=== PATIENT | male | born 1980 | race Caucasian/White ===

== ENCOUNTER 2020-06-21 10:25 | Emergency (ER) | payer MEDICARE, MEDICAID, SELFPAY ==
[2020-06-21 10:48] VITALS: BP 132/91; PULSE 101; RESP 18; TEMP 36.9; O2SAT 100
--- NOTE | 2020-06-21 10:50 | ED.URI ---
HPI - URI/Sore Throat General Chief Complaint: Anxiety Stated Complaint: anxiety/chest pain Time Seen by Provider: 06/21/20 10:50 Source: patient Mode of arrival: ambulatory Limitations: no limitations History of Present Illness HPI Narrative: Garcia Sandy is a 40 yo male with CP, anxiety, depression, and HTN , who comes to [facility] with concerns about Covid. It is very anxious even though he has not been exposed about having the possibility of having Covid, he wears a mask, stays home with his mother. Patient stated he is states that he has funny feelings in his chest. He had the same situation back in February where he went to get a chest x-ray to verify that he did not have Covid but has not had a serological test Related Data Home Medications Medication Instructions Recorded Confirmed clonazepam 0.5 mg PO BID 06/21/20 06/21/20 fluvoxamine 100 mg PO HS 06/21/20 06/21/20 losartan 25 mg PO DAILY 06/21/20 06/21/20 paroxetine HCl [Paxil CR] 50 mg PO QAM 06/21/20 06/21/20 Allergies Allergy/AdvReac Type Severity Reaction Status Date / Time No Known Allergies Allergy Verified 06/21/20 10:54 Review of Systems Review of Systems: Narrative: CONSTITUTIONAL: Denies fever, chills, sweats. EYES: Denies visual changes, redness, discharge. ENT: Denies rhinorrhea, congestion, sore throat, otalgia. CARDIOVASCULAR: Denies chest pain, palpitations, edema. RESPIRATORY: Denies dyspnea, wheezing, cough. Feels funny in chest- wants covid evaluation GASTROINTESTINAL: Denies abdominal pain, nausea, vomiting, diarrhea. GENITOURINARY: Denies dysuria, hematuria, abnormal discharge SKIN: Denies rash or itching. NEUROLOGIC: Denies numbness, or focal weakness. PSYCHIATRIC: Denies anxiety or depression. ON LICENSE OF [facility] Past Medical History Medical History Anxiety Cerebral palsy Depression Hypertension Family History Family History Other Hypertension Social History Social History (Updated 06/21/20 @ 11:08 by Annie Morse CNP) Living arrangements: with family Occupation/Education: other Comments At time of signature, I agree with nursing past medical, surgical, social and family history. There is no relevant family history pertinent to the presenting complaint. Exam Narrative: Exam Narrative: GENERAL: This is a well-nourished, well-developed patient, in mild distress. Very anxious, interfering in quality of life HEAD: normocephalic, atraumatic. EYES: PERRL. Vision is grossly intact. EARS: External ears normal, . Hearing grossly intact. NOSE: External nose normal without nasal discharge, nares without redness, no rhinorrhea. THROAT: Mucous membranes moist, NECK: Neck supple, CARDIOVASCULAR: Regular rate and rhythm without murmurs, gallops, or rubs. RESPIRATORY: Clear to auscultation. Breath sounds equal bilaterally. No wheezes, rales, or rhonchi. GASTROINTESTINAL: Abdomen soft, non-tender, SKIN: warm, intact with no suspicious lesions or rash, good texture and turgor. NEURO: awake, alert, and oriented to person, place and time. There were no obvious focal neurologic abnormalities. Steady gait EXTREMITIES: Multiple contractures of limitations of extremities with CP BACK: Nontender without deformity Course Course Emergency Course: Discussed with patient the pros and cons of serological testing for Covid; will retest Vital Signs Vital signs: Vital Signs Temperature 98.4 F 06/21/20 10:48 Pulse Rate 101 H 06/21/20 10:48 Respiratory Rate 18 06/21/20 10:48 Blood Pressure 132/91 H 06/21/20 10:48 Pulse Oximetry 100 06/21/20 10:48 Temperature 98.4 F 06/21/20 10:48 Pulse Rate 101 H 06/21/20 10:48 Respiratory Rate 18 06/21/20 10:48 Blood Pressure 132/91 H 06/21/20 10:48 Pulse Oximetry 100 06/21/20 10:48 MDM - URI/Sore Throat Differential Diagnosis Differential diagnosis: Likely uppe
== END 2020-06-21 11:30 | disposition home or self-care (01) ==
PROVIDERS: Emergency Provider Nurse Practitioner; PCP Internal Medicine
DX: F41.9 Anxiety disorder, unspecified (principal); R53.81 Other malaise; Z20.828 Contact with and (suspected) exposure to other viral communicable diseases; G80.9 Cerebral palsy, unspecified; F32.9 Major depressive disorder, single episode, unspecified; I10 Essential (primary) hypertension
CPT/HCPCS: 99201; G0463

== ENCOUNTER 2020-06-21 13:06 | Outpatient (NON) | payer MEDICARE, MEDICAID, SELFPAY ==
[2020-06-22 19:52] LABS: SARS-CoV-2 RNA PCR Negative
== END 2020-06-21 13:07 ==
PROVIDERS: Visit Provider Nurse Practitioner
DX: Z20.828 Contact with and (suspected) exposure to other viral communicable diseases (principal); R53.81 Other malaise
CPT/HCPCS: 87635; C9803; U0003

== ENCOUNTER 2020-10-17 14:36 | Outpatient (CLI) | payer MEDICARE, MEDICAID, SELFPAY ==
--- NOTE | ~2020-10-17 | XR_ITS ---
XR abdomen/kub 1V 10/17/2020 15:09 Indication: Bladder stone. Right-sided abdominal pain. Procedure: KUB Comparison: Comparison to multiple prior studies sequentially, with oldest reviewed study dated 02/18. Findings: There are extensive surgical changes in the spine and hips. There is a right-sided catheter of the abdomen unchanged in position. There are right renal stone. Bowel gas pattern nonobstructive. Moderate colonic fecal loading. Bladder appears distended. Impression: 1: Right nephrolithiasis. Reviewed, dictated and finalized at location A. LLE DUPLICATING MACHINE OPERATOR Impression: 1: Right nephrolithiasis.
== END 2020-10-17 14:37 | disposition home or self-care (01) ==
PROVIDERS: PCP Internal Medicine; Visit Provider Urology
DX: N20.0 Calculus of kidney (principal)
CPT/HCPCS: 74018

== ENCOUNTER 2020-10-22 15:11 | Outpatient (CLI) | payer MEDICARE, MEDICAID, SELFPAY ==
--- NOTE | ~2020-10-22 | XR_ITS ---
XR abdomen/kub 1V DATE: 10/22/2020 15:31 INDICATION: Bladder stone TECHNIQUE: 2 supine AP views of abdomen and pelvis COMPARISON: 10/17/2020 KUB FINDINGS: Bilateral spinal rods and postoperative changes of both hips are again noted. Diffuse osteopenia. Probable ventriculoperitoneal shunt catheter tubing overlying the medial right abdomen. There is a prominent amount of fecal material in the colon. There are some nondilated gas containing small bowel segments overlying the mid abdomen, which may be due to enteritis or mild adynamic ileus. No bowel obstruction is evident. Calcifications overlie the renal silhouettes; nephrolithiasis is not excluded. IMPRESSION: Prominent amount of fecal material in the colon and nondilated gas containing mid abdomen small bowel segments, which may be due to mild adynamic ileus or enteritis. Reviewed, dictated and finalized at [facility]. Reviewed, dictated and finalized at location A.
== END 2020-10-22 15:12 | disposition home or self-care (01) ==
PROVIDERS: PCP Internal Medicine; Visit Provider Urology
DX: N21.0 Calculus in bladder (principal)
CPT/HCPCS: 74018

== ENCOUNTER 2021-03-05 14:57 | Emergency (ER) | payer MEDICARE, MEDICAID, SELFPAY ==
[2021-03-05 15:13] VITALS: BP 147/92; PULSE 92; RESP 20; TEMP 36.8; O2SAT 100
--- NOTE | 2021-03-05 15:19 | ED.URI ---
HPI - URI/Sore Throat General Chief Complaint: Upper Respiratory Infection Stated Complaint: Sinus, Source: patient and RN notes reviewed Limitations: no limitations History of Present Illness HPI Narrative: The vaccinated patient, who has a history of cerebral palsy in a wheelchair, presents with sinus congestion. Mother indicates her son is a non-smoker/nondrinker with pet dogs at home. He has intermittent history of eyes watering, nasal congestion and for which he is concerned he might have Covid. He has had a previous chest x-ray and covid test last month. No fever, cough, vomiting/diarrhea, loss of taste/smell, CP, wheezing, SS OB, med noncompliance [ except he did not take his blood pressure pills today]. The eye itching and sinus congestion is min responsive to Benadryl Related Data Home Medications Medication Instructions Recorded Confirmed clonazepam 0.5 mg PO BID 06/21/20 06/21/20 fluvoxamine 100 mg PO HS 06/21/20 06/21/20 losartan 25 mg PO DAILY 06/21/20 06/21/20 paroxetine HCl [Paxil CR] 50 mg PO QAM 06/21/20 06/21/20 cephalexin 03/05/21 Allergies Allergy/AdvReac Type Severity Reaction Status Date / Time clarithromycin AdvReac Severe PARANOIA/PANIC Verified 10/23/20 13:51 AND ANXIETY ATTACKS Review of Systems Review of Systems: Narrative: General/Constitutional: No weight loss,fever Eyes: N0: Redness, REPORTS watery discharge Ears/Nose/Throat: No: Epistaxis,ear discharge Respiratory: Denies: Hemoptysis Gastrointestinal: No Vomiting, Bleeding-rectal Skin: No Lumps, eruption Neurologic: No Focal Weakness,Sz Hematologic: Denies: Petechiae/Purpura Psychiatric: No: Suicida ideationl All Other Systems: Reviewed and Negative PMFSH Past Medical History Medical History (Updated 03/05/21 @ 18:46 by Drarin Eagle MD) Anxiety Anxiety Cerebral palsy Cerebral palsy Chronic back pain Depression Depression GERD (gastroesophageal reflux disease) HTN (hypertension) Hydrocephalus Hyperlipidemia Hypertension Kidney stones Lordosis Scoliosis Seizures UTI (urinary tract infection) Surgical History Surgical History (System 10/23/20 @ 13:51 by Adelaida Rhodes) History of brain shunt History of hip surgery Bilateral osteotomies History of spinal fusion With jeff placement Family History Family History (System 10/23/20 @ 13:51 by Adelaida Rhodes) Other Hypertension Social History Social History (System 10/23/20 @ 13:51 by Adelaida Rhodes) Smoking status: Never smoker Comments At time of signature, agree with nursing past medical, surgical, social and family history. There is no relevant family history pertinent to the presenting complaint Exam Narrative: Exam Narrative: General Appearance: In wheelchair, chronically unwell EYE: PERRLA, Conjunctiva sl injected Ears: Auditory canal normal, TM normal Nose: Rhinorrhea, Mucousal erythema Mouth/Throat: MM moist, Uvula midline, Pharyngeal erythema Neck: Supple, No adenopathy Respiratory: No respiratory distress, gliotic, with decreased BS charla at bases Cardiovascular: RRR, Musculoskeletal: Decreased ROM and strength with spasticity Skin: Warm, Dry Neurological: Awake and alert Psychiatric: Normal mood, Normal affect Course Vital Signs Vital signs: Vital Signs Temperature 98.3 F 03/05/21 15:13 Pulse Rate 92 03/05/21 15:13 Respiratory Rate 20 03/05/21 15:13 Blood Pressure 147/92 H 03/05/21 15:13 Pulse Oximetry 100 03/05/21 15:13 Temperature 98.3 F 03/05/21 15:13 Pulse Rate 92 03/05/21 15:13 Respiratory Rate 20 03/05/21 15:13 Blood Pressure 147/92 H 03/05/21 15:13 Pulse Oximetry 100 03/05/21 15:13 MDM - URI/Sore Throat Lab Data Labs: Lab Results 03/05/21 Range/Units 15:25 POC SARS CoV-2 Ag Negative (Negative) Discharge Plan Discharge Clinical Impression: Mood disorder Allergic conjunctivitis Qualifiers: Later
[2021-03-06 18:40] LABS: SARS-CoV-2 RNA PCR Negative
== END 2021-03-05 16:05 | disposition home or self-care (01) ==
PROVIDERS: Emergency Provider Emergency Medicine; PCP Internal Medicine
DX: F39 Unspecified mood [affective] disorder (principal); H10.13 Acute atopic conjunctivitis, bilateral; Z20.822 Contact with and (suspected) exposure to COVID-19; F41.9 Anxiety disorder, unspecified; G80.9 Cerebral palsy, unspecified; F32.9 Major depressive disorder, single episode, unspecified; K21.9 Gastro-esophageal reflux disease without esophagitis; I10 Essential (primary) hypertension; G91.9 Hydrocephalus, unspecified; E78.5 Hyperlipidemia, unspecified; M41.9 Scoliosis, unspecified; G40.909 Epilepsy, unspecified, not intractable, without status epilepticus
CPT/HCPCS: 87426; 99213; C9803; G0463; U0003; U0005

== ENCOUNTER 2021-05-07 12:11 | Emergency (ER) | payer MEDICARE, MEDICAID, SELFPAY ==
[2021-05-07 12:20] VITALS: BP 130/98; PULSE 90; RESP 18; TEMP 36.5; O2SAT 100
--- NOTE | 2021-05-07 13:15 | ED.GENADULT ---
HPI - General Adult General Chief complaint: Upper Respiratory Infection Stated complaint: sore throat Source: patient and family (Mother) Mode of arrival: ambulatory Limitations: no limitations History of Present Illness HPI narrative: Patient is a 1-year-old male with history significant for cerebral palsy that presents to the [facility] via POV for evaluation of a sore throat that began 1 to 2 days ago. Additionally, he reports bilateral ear pain, sinus drainage and rhinorrhea. He reports his throat pain is constant and raw in nature. Ibuprofen improves sore throat and ear pain. Nothing worsens symptoms. Denies known exposure to sick contacts. He is fully vaccinated against Covid. Of note, patient is concerned he may have Covid and is requesting Covid testing before returning to [facility]. Related Data Home Medications Medication Instructions Recorded Confirmed losartan 25 mg PO DAILY 06/21/20 05/07/21 clonazepam 1 mg PO BID 05/07/21 05/07/21 paroxetine HCl [Paxil CR] mg PO 05/07/21 paroxetine HCl [Paxil CR] mg PO 05/07/21 Allergies Allergy/AdvReac Type Severity Reaction Status Date / Time clarithromycin AdvReac Severe PARANOIA/PANIC Verified 10/23/20 13:51 AND ANXIETY ATTACKS Review of Systems Review of Systems: Head: Denies headache, sinus pain, sinus pressure. EYES: Denies visual changes, redness, or discharge. ENT: Denies congestion, ear drainage, hearing problems, tinnitus, vertigo, drooling, difficulty swallowing, or sneezing. CARDIOVASCULAR: Denies chest pain, palpitations, or edema. RESPIRATORY: Denies cough or dyspnea. GASTROINTESTINAL: Denies abdominal pain, nausea, vomiting, or diarrhea. SKIN: Denies rash or skin color changes. MUSCULOSKELETAL: Denies back pain, joint pain, or myalgia. NEUROLOGIC: Denies headache, numbness, or weakness. PSYCHIATRIC: Denies anxiety or depression. [facility] Past Medical History Medical History Anxiety Anxiety Cerebral palsy Cerebral palsy Chronic back pain Depression Depression GERD (gastroesophageal reflux disease) HTN (hypertension) Hydrocephalus Hyperlipidemia Hypertension Kidney stones Lordosis Scoliosis Seizures UTI (urinary tract infection) Surgical History Surgical History History of brain shunt History of hip surgery Bilateral osteotomies History of spinal fusion With jeff placement Family History Family History Other Hypertension Social History Social History Smoking status: Never smoker Comments I have reviewed and agree with the patient's past medical, surgical, social, and family hx as documented by the RN. There is no relevant family history pertinent to the presenting complaint. Exam Narrative: GENERAL: Well-appearing, well-nourished, and in no acute distress. HEAD: Normocephalic, atraumatic. No sinus tenderness or facial swelling appreciated. EYES: PERRLA and EOMI. No evidence of erythema, swelling, or drainage. ENT: Bilateral external ears and ear canals normal. Bilateral TMs are normal.No TM perforation. Nares clear, no rhinorrhea or epistaxis. Bilateral turbinates without erythema/ swelling. Mucous membranes moist and pink. Uvula is midline without erythema and swelling. No evidence of petechial rash, cobblestoning, lesions, ulcers, erythema, swelling, exudates, peritonsillar abscess, tenting, or drooling. Breath odor and voice normal. NECK: Supple. No Lymphadenopathy or nuchal rigidity appreciated. CHEST: Bilateral lung mcelroy are clear to auscultation. No respiratory distress. No evidence of cough or pleuritic cp upon examination. HEART: Regular rate and rhythm. No murmur, gallop, or rub heard. EXTREMITIES: Normal range of motion. No edema. SKIN: Warm, dry, no ra
[2021-05-09 16:55] LABS: SARS-CoV-2 RNA PCR Negative
== END 2021-05-07 13:25 | disposition home or self-care (01) ==
PROVIDERS: Emergency Provider Nurse Practitioner Family; PCP Internal Medicine
DX: J06.9 Acute upper respiratory infection, unspecified (principal); Z20.822 Contact with and (suspected) exposure to COVID-19; G80.9 Cerebral palsy, unspecified; K21.9 Gastro-esophageal reflux disease without esophagitis; I10 Essential (primary) hypertension; E78.5 Hyperlipidemia, unspecified; M41.9 Scoliosis, unspecified; F41.9 Anxiety disorder, unspecified; F32.9 Major depressive disorder, single episode, unspecified; G91.9 Hydrocephalus, unspecified
CPT/HCPCS: 99211; C9803; G0463; U0003; U0005

== ENCOUNTER 2021-08-05 17:32 | Emergency (ER) | payer MEDICARE, MEDICAID, SELFPAY ==
--- NOTE | ~2021-08-05 | CT_ITS ---
EXAMINATION: CT abdomen pelvis wo con DATE: 08/05/2021 20:15 INDICATION: Lower abdominal pain. History of bladder stones. TECHNIQUE: Computed tomography (CT) of the abdomen and pelvis was performed without intravenous contr ast. Automated exposure control and iterative reconstruction technique were employed. Exam dose: 433 .60 mGy-cm total exam DLP. COMPARISON: 10/22/2020 KUB 02/18/2019 CT abdomen pelvis FINDINGS: Thoracolumbar lumbar spinal rods extending into the iliac bones are again noted, creating c onsiderable streak artifact, limiting the examination. There is anterior fusion from the lower thorac ic region through lumbosacral region. Bilateral hip hardware is again noted. There is mild bilateral gynecomastia. There is mild atelectasis in the lower lung zones. Heart size is within normal limits. There is no pe ricardial or pleural effusion. The liver, gallbladder, bile ducts, pancreas, pancreatic duct, spleen, and adrenal glands are unremar kable. There is an exophytic 1.9 cm cyst of the lower pole of the right kidney. There is an approximately 3. 3 x 6 mm nonobstructing mid right renal calculus. There is a 2 x 4 mm nonobstructing mid left renal c alculus. There is prostate enlargement. There is moderate diffuse thickening of the urinary bladder wall. Normal appendix. No bowel obstruction, bowel wall thickening, pneumatosis or intraperitoneal free air is evident. There is atherosclerotic calcification but no aneurysm of the abdominal aorta. No intraperitoneal or retroperitoneal or pelvic mass lesion or adenopathy or ascites is noted. IMPRESSION: No bladder stones are detected Prostate enlargement There is a nonobstructing calculus of each kidney 1.9 cm right lower pole exophytic renal probable cyst Normal appendix Status post posterior spinal surgical fusion. There is anterior fusion of the lower thoracic spine th rough the L5-S1 region. Reviewed, dictated and finalized at [facility]. Reviewed, dictated and finalized at location A. MASSAGE THERAPIST IMPRESSION: No bladder stones are detected Prostate enlargement There is a nonobstructing calculus of each kidney 1.9 cm right lower pole exophytic renal probable cyst Normal appendix Status post posterior spinal surgical fusion. There is anterior fusion of the l ower thoracic spine through the L5-S1 region.
[2021-08-05 17:44] VITALS: BP 146/78; PULSE 84; RESP 18; TEMP 36.6; O2SAT 100
--- NOTE | 2021-08-05 19:07 | ED.GENADULT ---
HPI - General Adult General Chief complaint: Urogenital-Male Stated complaint: Lower Abd Pain Hx Bladder Stones Time Seen by Provider: 08/05/21 19:03 Source: RN notes reviewed History of Present Illness HPI narrative: Patient presents emergency department from home for abdominal pain. Patient states he been having intermittent lower abdominal pain over the past week describes the pain as a tingling feeling that well resolved states that he had a history of bladder stones approximately 3 years ago and feels similar to that at that time he had been seen by Dr. Hernandez for urology with removal of the bladder stones patient does have a history of cerebral palsy and is catheterized at home by a caregiver 3 times a day he denies any fevers or chills nausea vomiting or any other symptoms Related Data Home Medications Medication Instructions Recorded Confirmed losartan 25 mg PO DAILY 06/21/20 05/07/21 clonazepam 1 mg PO BID 05/07/21 05/07/21 paroxetine HCl [Paxil CR] mg PO 05/07/21 paroxetine HCl [Paxil CR] mg PO 05/07/21 Allergies Allergy/AdvReac Type Severity Reaction Status Date / Time clarithromycin AdvReac Severe PARANOIA/PANIC Verified 08/05/21 17:51 AND ANXIETY ATTACKS Review of Systems Review of Systems: Gen.: Denies fevers or chills ENT: Denies congestion Respiratory: Denies shortness of breath or cough CV: Denies chest pain or palpitations GI: Reports lower abdominal pain nausea, emesis or diarrhea denies burning, urgency, frequency or hematuria reports self-catheterization Musculoskeletal: Denies back pain or muscle pain Neuro: Denies numbness, tingling, weakness or focal weakness Skin: Denies rash Except as documented, all other systems reviewed and negative [facility] Past Medical History Medical History Anxiety Anxiety Cerebral palsy Cerebral palsy Chronic back pain Depression Depression GERD (gastroesophageal reflux disease) HTN (hypertension) Hydrocephalus Hyperlipidemia Hypertension Kidney stones Lordosis Scoliosis Seizures UTI (urinary tract infection) Surgical History Surgical History History of brain shunt History of hip surgery Bilateral osteotomies History of spinal fusion With jeff placement Family History Family History Other Hypertension Social History Social History Smoking status: Never smoker Exam Narrative: APPEARANCE: No acute distress, nontoxic, resting in bed EYES: EOMI HEENT: Normocephalic, atraumatic, OMM RESPIRATORY: No respiratory distress Clear to auscultation bilaterally with no rhonchi wheezing or rales. CARDIOVASCULAR: Regular rate and rhythm without murmurs rubs or gallops. ABDOMINAL: Soft, nontender, nondistended, no rebound or guarding MUSCULOSKELETAl: No clubbing, cyanosis or edema. NEURO: Awake and alert. Following commands, speech normal SKIN:: Warm, dry. No rashes lesions or abrasions PSYCHIATRIC: Normal affect/mood, Course Course Emergency Course: Discussed with Dr. Hernandez presentation work-up. Recommends patient start on Omnicef at discharge with follow-up as an outpatient Discussed with patient results of workup and diagnosis. Discussed need for follow-up with primary care, proper use of medication, and reasons to return to the emergency department. Patient understands and agrees to current treatment plan Vital Signs Vital signs: Vital Signs Temperature 97.9 F 08/05/21 17:44 Pulse Rate 84 08/05/21 17:44 Respiratory Rate 18 08/05/21 17:44 Blood Pressure 146/78 H 08/05/21 17:44 Pulse Oximetry 100 08/05/21 17:44 Temperature 97.9 F 08/05/21 17:44 Pulse Rate 84 08/05/21 17:44 Respiratory Rate 18 08/05/21 17:44 Blood Pressure 146/78 H 08/05/21 17:44 Pulse Oximetry 100 12
[2021-08-05 19:47] LABS: Basophils Percent Auto 0.4 % (0.2-1.2); Eosinophils Percent Auto 0.5 % (0-4.4); Hematocrit 45.8 % (42.0-52.0); Immature Granulocyte Absolute 0.02 K/mm3 (0.00-0.031); Immature Granulocyte Percent A 0.3 % (0-0.5); Lymphocytes Absolute Auto 1.51 K/mm3 (0.9-3.2); Lymphocytes Percent Auto 19.8 % (18.3-44.2); Mean Corpuscular HGB Conc 32.8 g/dl (32-36); Mean Corpuscular Hemoglobin 31.3 pg (26-34); Mean Corpuscular Volume 95.4 fl (80-100); Mean Platelet Volume 9.8 fl (7.4-10.4); Monocytes Absolute Auto 0.4 K/mm3 (0.1-0.6); Monocytes Percent Auto 5.5 % (2.6-8.5); Neutrophils Absolute Auto 5.6 K/mm3 (1.3-6.7); Neutrophils Percent Auto 73.5 % (45.5-73.1); Platelet Count Result 214 k/mm3 (150-375); Red Cell Distribution Width 12.4 % (11.5-14.5); White Blood Count 7.6 K/mm3 (4.5-10.0)
[2021-08-05 19:58] LABS: Alanine Aminotransferase 26 U/L (4-50); Albumin Level 4.8 g/dL (3.5-5.1); Alkaline Phosphatase 83 U/L (38-126); Anion Gap 8 mmol/L (8-16); Aspartate Amino Transferase 26 U/L (17-59); Bilirubin,Total 0.4 mg/dL (0.2-1.3); Blood Urea Nitrogen 12 mg/dL (9-20); Calcium 9.4 mg/dL (8.4-10.2); Carbon Dioxide 33 mmol/L (22-30); Chloride 97 mmol/L (98-107); Estimated CRCL calculation 114 ml/min; Estimated Glomerular Filt Rate > 60; Glucose 96 mg/dL (65-110); Potassium 4.4 mmol/L (3.4-5.0); Sodium 138 mmol/L (137-145)
[2021-08-05 20:20] LABS: Add Urine Microscopic? YES; Appearance Urine Cloudy (Clear); Bilirubin Urine Negative (Negative); Color Urine Yellow (Yellow); Glucose Urine UA Negative (Negative); Ketones Urine Negative (Negative); Leukocyte Esterase Ur 3+ LEU/UL (Negative); Nitrate Urine Negative (Negative); Protein Urine Negative (Negative); Specific Grav Ur 1.014 (1.001-1.035); Squamous Epithelial Cell Urine Rare /hpf (Few); Urobilinogen Urine Negative mg/dL (<2.0); WBC Urine 31-50 /hpf
[2021-08-05 20:21] LABS: Blood Urine Negative (Negative)
[2021-08-05] MEDS: CEFDINIR 300 MG CAPSULE PO (21:53)
== END 2021-08-05 22:04 | disposition home or self-care (01) ==
PROVIDERS: Emergency Provider Emergency Medicine; PCP Internal Medicine
DX: N39.0 Urinary tract infection, site not specified (principal); I10 Essential (primary) hypertension; E78.5 Hyperlipidemia, unspecified; G80.9 Cerebral palsy, unspecified; F41.8 Other specified anxiety disorders; K21.9 Gastro-esophageal reflux disease without esophagitis; G91.9 Hydrocephalus, unspecified
CPT/HCPCS: 36415; 74176; 80053; 81001; 85025; 87077; 87086; 87088; 87186; 99284; A9270

== ENCOUNTER 2021-12-31 13:47 | Outpatient (CLI) | payer MEDICARE, MEDICAID, SELFPAY ==
--- NOTE | ~2021-12-31 | XR_ITS ---
EXAM: XR abdomen/kub 1V DATE: 12/31/2021 14:11 HISTORY: BLADDER STONE . COMPARISON: CT abdomen pelvis 08/05/2021. FINDINGS: Clear lung bases. Normal bowel gas pattern. No organomegaly. Stable renal calculi. Partial ly visualized MEDIA SERVICES COORDINATOR shunt tubing, extensive thoracolumbar fusion hardware. Bilateral femoral hardware. IMPRESSION: Bilateral nephrolithiasis. No radiographic evidence of urinary bladder stone. Reviewed, dictated and finalized at location K. IMPRESSION: Bilateral nephrolithiasis. No radiographic evidence of urinary blad siobhan stone.
== END 2021-12-31 13:48 | disposition home or self-care (01) ==
PROVIDERS: PCP Internal Medicine; Visit Provider Urology
DX: N21.0 Calculus in bladder (principal); N20.0 Calculus of kidney
CPT/HCPCS: 74018

== ENCOUNTER 2022-07-09 15:56 | Outpatient (CLI) | payer MEDICARE, MEDICAID, SELFPAY ==
[2022-07-09 17:11] LABS: Influenza A QL RT-PCR Negative (Negative); Influenza B QL RT-PCR Negative (Negative)
== END 2022-07-09 15:57 | disposition home or self-care (01) ==
PROVIDERS: PCP Internal Medicine; Visit Provider Internal Medicine
DX: R51.9 Headache, unspecified (principal); J32.9 Chronic sinusitis, unspecified
CPT/HCPCS: 87502

== ENCOUNTER 2023-05-08 19:57 | Inpatient (IN) | payer MEDICARE, MEDICAID, SELFPAY ==
--- NOTE | ~2023-05-08 | XR_ITS ---
EXAMINATION: XR chest 1V portable Exam Date/Time: 05/10/2023 13:50 CDT HISTORY: dyspnea Comparison: 08/06/2019. RESULT: Lines, tubes, and devices: Partially visualized spine fusion hardware. Partially visualized right ne ck catheter tubing. Lungs and pleura: Patchy bibasilar opacities, worse in the left lung base. Cardiomediastinal silhouette: Stable. Other: No acute osseous or upper abdominal finding. IMPRESSION: Bibasilar atelectasis/consolidation. Reviewed, dictated and finalized at location K.
--- NOTE | ~2023-05-08 | XR_ITS ---
EXAMINATION: XR retrograde pyelo w/stent RT INDICATION: Right ureteral stone, stent placement TECHNIQUE: Six intraoperative fluoroscopic images are submitted for review. Total fluoroscopic time w as 31.5 seconds. COMPARISON: CT from yesterday FINDINGS: Fluoroscopic images demonstrate retrograde opacification of the right ureter. The stone sergio cribed on the comparison CT appears to have migrated in a retrograde fashion into the lower pole kim x of the kidney. A right internal ureteral stent is placed with its tip in the renal pelvis and a coi led portion in the urinary bladder. Retrograde opacification of the ureter demonstrates multiple smal l areas of stricturing. IMPRESSION: 1. Right internal ureteral stent in expected position. Please refer to procedure note for full detail s. Reviewed, dictated and finalized at location F. IMPRESSION: 1. Right internal ureteral stent in expected position. Please refer to procedur e note for full details.
--- NOTE | ~2023-05-08 | CT_ITS ---
EXAMINATION: CT abdomen pelvis wo con DATE: 05/08/2023 23:33 INDICATION: Right flank pain TECHNIQUE: Computed tomography (CT) of the abdomen and pelvis was performed without intravenous contr ast. The dose-length product (DLP) was 547.74 mGy-cm. Automated exposure control and iterative recons truction technique were employed. COMPARISON: 08/05/2021 FINDINGS: Minimal dependent atelectasis is present in the lung bases. The heart size is normal. The l iver, spleen, pancreas, gallbladder, and adrenal glands are normal. There is a 6 mm stone of the prox imal right ureter causing moderate hydroureteronephrosis. There is also an 8 mm stone in the urinary bladder. There is mild wall thickening of the urinary bladder. There are two nonobstructing stones of the right kidney which measure up to 3 mm. There is a chronic exophytic cyst of the right kidney. Th e left kidney is unremarkable. No pathologically enlarged abdominal or pelvic lymph nodes are identif ied. A large volume of colonic stool is present. There are changes of thoracolumbar to the sacral fu marco a. There are bilateral blade plate and screw fixation of the hips. There is discontinuous catheter tubing coursing in the subcutaneous tissues of the right anterior chest and upper abdomen and ending in the right mid abdomen. IMPRESSION: 1. 6 mm stone of the proximal right ureter causing moderate hydroureteronephrosis. 2. Right nephrolithiasis and bladder stone. 3. Wall thickening of the urinary bladder which could reflect neurogenic bladder. Reviewed, dictated and finalized at location F. IMPRESSION: 1. 6 mm stone of the proximal right ureter causing moderate hydroureteronephros is. 2. Right nephrolithiasis and bladder stone. 3. Wall thickening of the urinary bladder which could reflect neurogenic bladde manjinder
--- NOTE | ~2023-05-08 | XR_ITS ---
EXAM: XR abdomen/kub 1V DATE: 05/11/2023 15:20 HISTORY: surgical planning . COMPARISON: None available. FINDINGS: 6 mm calcification projecting over the right renal shadow. Right ureteral stent, in good p osition. 5 mm calcification projecting over the urinary bladder and the pelvic ring. Partially visual ized uncomplicated appearing spinal fusion hardware. The rectum appears to be distended by formed sto ol but is incompletely included in the [id number]. Multiple loops of mildly dilated small bowel th roughout the abdomen. No organomegaly. IMPRESSION: Small bowel ileus versus obstruction. Possible fecal impaction. Reviewed, dictated and finalized at location K.
[2023-05-08 20:13] VITALS: BP 140/80; PULSE 120; RESP 16; TEMP 37.6; O2SAT 95
[2023-05-08 22:17] VITALS: BP 132/85; PULSE 125; RESP 22; TEMP 37.9; O2SAT 98
[2023-05-08 22:37] VITALS: BP 131/82; PULSE 143; RESP 20; TEMP 39.6; O2SAT 97
[2023-05-08 23:04] VITALS: O2SAT 94
[2023-05-08] MEDS: ACETAMINOPHEN 500 MG TABLET 1000 MG PO (23:13)
--- NOTE | 2023-05-08 23:19 | PC.NURSE ---
Patient taken to CT via personal w/c with family.
--- NOTE | 2023-05-08 23:23 | ED.GENADULT ---
HPI - General Adult General Chief complaint: Urogenital-Male Stated complaint: fever, pain right flank Time Seen by Provider: 05/08/23 22:45 History of Present Illness HPI narrative: This is a 43-year-old male with past history of hypertension, cerebral palsy and UTIs, who presents the emergency department complaining of fevers and right flank pain. The patient's flank pain began 2 days ago. He rates it 4/10 at rest, increasing to 8/10 with palpation. The patient and his mother note his fevers began earlier this evening. The patient's mother also states she regularly straight caths him and has noted his urine has appeared cloudy. Related Data Home Medications Medication Instructions Recorded Confirmed losartan 25 mg tablet 25 mg PO DAILY 06/21/20 05/09/23 clonazepam 1 mg tablet 1 mg PO DAILY 05/07/21 05/09/23 paroxetine HCl 12.5 mg 12.5 mg PO DAILY 05/07/21 05/09/23 tablet,extended release 24 hr (Paxil CR) paroxetine HCl 37.5 mg 37.5 mg PO DAILY 05/07/21 05/09/23 tablet,extended release 24 hr (Paxil CR) clonidine HCl 0.1 mg tablet 0.1 mg PO DAILY PRN Anxiety 05/08/23 05/09/23 fluvoxamine 100 mg tablet 50 mg PO BID 05/08/23 05/09/23 lamotrigine 100 mg tablet 100 mg PO DAILY 05/08/23 05/09/23 Allergies Allergy/AdvReac Type Severity Reaction Status Date / Time clarithromycin AdvReac Severe PARANOIA/PANIC Verified 05/09/23 02:51 AND ANXIETY ATTACKS Review of Systems Review of Systems: CONSTITUTIONAL: Fevers denies chills, or sweats. CARDIOVASCULAR: Denies chest pain, palpitations, or edema. RESPIRATORY: Denies cough or dyspnea. GASTROINTESTINAL: Right flank pain denies abdominal pain, nausea, vomiting, or diarrhea. GENITOURINARY: Denies dysuria or hematuria. SKIN: Denies rash or itching. MUSCULOSKELETAL: Denies back pain, joint pain, or myalgia. NEUROLOGIC: Denies headache, numbness, dizziness, or weakness. PSYCHIATRIC: Denies anxiety or depression. [facility] Past Medical History Medical History Anxiety Anxiety Cerebral palsy Cerebral palsy Chronic back pain Depression Depression GERD (gastroesophageal reflux disease) HTN (hypertension) Hydrocephalus Hyperlipidemia Hypertension Kidney stones Lordosis Scoliosis Seizures UTI (urinary tract infection) Surgical History Surgical History History of brain shunt History of hip surgery Bilateral osteotomies History of spinal fusion With jeff placement Family History Family History Other Hypertension Social History Social History Smoking status: Never smoker Alcohol intake: never Substance use: never Lack of Transportation: No Lack of Food: Never True Current Housing: I Have Housing Concerned About Future Housing: No Difficulty Paying Gas/Electric Bills: No Difficulty Paying for Meds: No Currently Unemployed: No Education: High School Diploma/GED Difficulty w/ Childcare or Family Care: No Living arrangements: with family Occupation/Education: other Spiritual care concerns: No Exam Narrative: GENERAL: Underdeveloped with atrophy of the extremities, well-nourished, and in no acute distress. HEAD: Normocephalic, atraumatic. EYES: PERRLA and EOMI. ENT: Nares clear, no rhinorrhea or epistaxis. Mucous membranes moist. Oropharynx without tonsillar hypertrophy exudate or other lesions. CHEST: Clear to auscultation. No respiratory distress. No wheezes rales or rhonchi HEART: Regular rate and rhythm. No murmur heard. Normal peripheral pulses. ABDOMEN: Soft, nontender, nondistended, normal active bowel sounds. Mild right CVA tenderness to palpation : Normal external male genitalia, circumcised, no noted erythema or induration EXTREMITIES: Normal range of motion. No
[2023-05-08 23:40] VITALS: TEMP 37.1
[2023-05-08 23:55] LABS: Basophils Percent Auto 0.2 % (0.2-1.2); Hemoglobin 13.7 g/dL (14.0-18.0); Immature Granulocyte Percent A 0.8 % (0-0.5); Lymphocytes Absolute Auto 0.18 K/mm3 (0.9-3.2); Lymphocytes Percent Auto 1.4 % (18.3-44.2); Mean Corpuscular HGB Conc 33.4 g/dl (32-36); Mean Corpuscular Hemoglobin 31.4 pg (26-34); Mean Corpuscular Volume 93.8 fl (80-100); Mean Platelet Volume 9.8 fl (7.4-10.4); Monocytes Absolute Auto 0.6 K/mm3 (0.1-0.6); Monocytes Percent Auto 4.9 % (2.6-8.5); Neutrophils Absolute Auto 11.7 K/mm3 (1.3-6.7); Neutrophils Percent Auto 92.7 % (45.5-73.1); Platelet Count Result 155 k/mm3 (150-375); Red Blood Count 4.37 M/mm3 (4.6-6.20); Red Cell Distribution Width 12.6 % (11.5-14.5); White Blood Count 12.7 K/mm3 (4.5-10.0)
[2023-05-08 23:59] LABS: Appearance Urine Cloudy (Clear); Bacteria Urine 4+ /hpf; Bilirubin Urine Negative (Negative); Blood Urine 2+ (Negative); Color Urine Yellow (Yellow); Glucose Urine UA Negative (Negative); Ketones Urine 2+ mg/dL (Negative); Leukocyte Esterase Ur 1+ LEU/UL (Negative); Nitrate Urine Positive (Negative); Protein Urine 2+ mg/dL (Negative); Specific Grav Ur 1.025 (1.001-1.035); Squamous Epithelial Cell Urine None seen /hpf (Few); WBC Urine >100 /hpf; pH Urine 6.5 (5.0-9.0)
[2023-05-09] VITALS (21 sets, daily range): BP systolic 73–129; BP diastolic 40–74; PULSE 89–112; RESP 16–20; TEMP 36.4–39.1; O2SAT 94–100; BMI 22.1
[2023-05-09] MEDS: SODIUM CHLORIDE 0.9% IV 2,000 ML 999 ML IV CONT (00:01)
[2023-05-09] MEDS: MORPHINE SULFATE (*CRX) 2 MG/ML INJ IV PUSH (00:02)
[2023-05-09 00:06] LABS: Alanine Aminotransferase 23 U/L (6-50); Albumin Level 4.2 g/dL (3.5-5.1); Alkaline Phosphatase 86 U/L (38-126); Anion Gap 6 mmol/L (8-16); Aspartate Amino Transferase 30 U/L (17-59); Bilirubin,Total 0.9 mg/dL (0.2-1.3); Blood Urea Nitrogen 15 mg/dL (9-20); Calcium 8.5 mg/dL (8.4-10.2); Carbon Dioxide 28 mmol/L (22-30); Chloride 101 mmol/L (98-107); Estimated CRCL calculation 65 ml/min; Estimated Glomerular Filt Rate > 60; Glucose 112 mg/dL (65-110); Potassium 3.5 mmol/L (3.4-5.0); Sodium 135 mmol/L (137-145)
[2023-05-09 00:20] LABS: Add Urine Microscopic? YES
[2023-05-09 00:32] LABS: Influenza A QL RT-PCR Negative (Negative); Influenza B QL RT-PCR Negative (Negative); SARS-CoV-2 RNA PCR Negative (Negative)
[2023-05-09] MEDS: cefTRIAXone 2 GM/NS 100 ML 2 GM/100 ML BAG IVPB (00:37)
--- NOTE | 2023-05-09 02:18 | ADMGEN ---
This patient, Garcia Sandy Jr., was admitted to Medical Room 346-01. Patient/family oriented to hospital policies and general routines including ID bracelet, bed and alarms, visiting hours, pain management, procedures, bathroom and other care routines, personal items, smoking policy, room service/diet, and visiting hours. Information on how to activate the Rapid Response Team has been discussed. Patient/Family are encouraged to report perceived risks to care and to ask questions if they do not understand what they are told or what they should do.
[2023-05-09] MEDS: SODIUM CHLORIDE 0.9% IV 1,000 ML 125 ML IV CONT ×3 (02:34→17:18)
[2023-05-09] MEDS: ACETAMINOPHEN 325 MG TABLET 650 MG PO (03:50)
--- NOTE | 2023-05-09 05:13 | PM.IMHP ---
H&P: HPI History of Present Illness Date/Time: 05/09/23 05:13 Chief Complaint: Patient brought into the ER for evaluation by her mother with intermittent fevers and right flank pain for 2 days Narrative: He is a very unfortunate young juvencio with Cerebral Palsy,, hypertension and recurrent UTIs who was brought to the ER for evaluation by her mother with complaints of intermittent fever and right flank pain for the last couple of days. Fever got higher last evening and the patient was brought to the ER for evaluation. He has loss of bladder control and her mother regularly self catheterizes him. She noted that his urine appears cloudy. Workup was done in the ER which showed UTI and right UPJ calculus. Patient is being admitted, given IV hydration, started on IV antibiotics and kept NPO for evaluation by Urology and possible JJ stent placement in am. Review of Systems Review of Systems: he denies any chest pain, palpitations, loss of consciousness, abdominal pain All systems reviewed & are unremarkable except as noted in HPI and below PMFSH Past Medical History Medical History (Updated 05/09/23 @ 05:20 by Kush Nicholas MD) Anxiety Anxiety Cerebral palsy Cerebral palsy Chronic back pain Depression Depression GERD (gastroesophageal reflux disease) HTN (hypertension) Hydrocephalus Hyperlipidemia Hypertension Kidney stones Lordosis Scoliosis Seizures UTI (urinary tract infection) Surgical History Surgical History History of brain shunt History of hip surgery Bilateral osteotomies History of spinal fusion With jeff placement Family History Family History Other Hypertension Social History Social History Smoking status: Never smoker Alcohol intake: never Substance use: never Lack of Transportation: No Lack of Food: Never True Current Housing: I Have Housing Concerned About Future Housing: No Difficulty Paying Gas/Electric Bills: No Difficulty Paying for Meds: No Currently Unemployed: No Education: High School Diploma/GED Difficulty w/ Childcare or Family Care: No Living arrangements: with family Occupation/Education: other Spiritual care concerns: No Meds Home Medications and Allergies Home Medications Medication Instructions Recorded Confirmed Type losartan 25 mg tablet 25 mg PO DAILY 06/21/20 05/09/23 History clonazepam 1 mg tablet 1 mg PO DAILY 05/07/21 05/09/23 History paroxetine HCl 12.5 mg 12.5 mg PO DAILY 05/07/21 05/09/23 History tablet,extended release 24 hr (Paxil CR) paroxetine HCl 37.5 mg 37.5 mg PO DAILY 05/07/21 05/09/23 History tablet,extended release 24 hr (Paxil CR) clonidine HCl 0.1 mg tablet 0.1 mg PO DAILY PRN Anxiety 05/08/23 05/09/23 History fluvoxamine 100 mg tablet 50 mg PO BID 05/08/23 05/09/23 History lamotrigine 100 mg tablet 100 mg PO DAILY 05/08/23 05/09/23 History Allergies Allergy/AdvReac Type Severity Reaction Status Date / Time clarithromycin AdvReac Severe PARANOIA/PANIC Verified 05/09/23 02:51 AND ANXIETY ATTACKS Vital Signs Vital Signs - 24 hr 05/08/23 20:13 05/08/23 22:17 05/08/23 22:37 Temperature 37.6 C H 37.9 C H 39.6 C H Pulse Rate 120 H 125 H 143 H Respiratory Rate 16 22 H 20 Blood Pressure 140/80 132/85 131/82 Pulse Oximetry 95 98 97 Oxygen Delivery Room Air 05/09/23 00:38 05/08/23 23:40 05/08/23 23:04 Temperature 37.1 C 37.1 C Pulse Rate 112 H Respiratory Rate 18 Blood Pressure 118/74 Pulse Oximetry 98 94 Oxygen Delivery 05/09/23 00:09 05/09/23 00:15 05/09/23 00:16 Temperature Pulse Rate Respiratory Rate Blood Pressure 118/74 Pulse Oximetry 94 94 94 Oxygen Delivery 05/09/23 00:34 05/09/23 01:01 05/09/23 01:23 Temperature Pulse Rate 107 H Respiratory Rate 18 Blo
--- NOTE | 2023-05-09 07:35 | PC.NURSE ---
Patient to sx at 0730. Parents at bedside
--- NOTE | 2023-05-09 07:42 | WPDANESEPPF ---
Anes - Initial Pre Proc Eval Procedure: Operation Date: 05/09/23 08:30 Proposed Procedures p Cysto, RPG, Stone Ext, Stent Placement(Right) - Darrin Fleming MD Date/Time: 05/09/23 07:42 Surgeon: Harpal Gallagher DO Pre Op Diagnosis: UTI, ureterolithiasis Patient Data Age: 43 Gender: M Height: 1.52 m Weight: 51.5 kg Last Vital Signs Temp 39.1 C H 05/09/23 04:00 Pulse 107 H 05/09/23 04:00 Resp 16 05/09/23 04:00 BP 110/50 L 05/09/23 04:00 Pulse Ox 95 05/09/23 04:00 O2 Del Method Room Air 05/08/23 22:37 Allergies Allergy/AdvReac Type Severity Reaction Status Date / Time clarithromycin AdvReac Severe PARANOIA/PANIC Verified 05/09/23 02:51 AND ANXIETY ATTACKS Home Medications Medication Instructions Recorded Confirmed Type losartan 25 mg tablet 25 mg PO DAILY 06/21/20 05/09/23 History clonazepam 1 mg tablet 1 mg PO DAILY 05/07/21 05/09/23 History paroxetine HCl 12.5 mg 12.5 mg PO DAILY 05/07/21 05/09/23 History tablet,extended release 24 hr (Paxil CR) paroxetine HCl 37.5 mg 37.5 mg PO DAILY 05/07/21 05/09/23 History tablet,extended release 24 hr (Paxil CR) clonidine HCl 0.1 mg tablet 0.1 mg PO DAILY PRN Anxiety 05/08/23 05/09/23 History fluvoxamine 100 mg tablet 50 mg PO BID 05/08/23 05/09/23 History lamotrigine 100 mg tablet 100 mg PO DAILY 05/08/23 05/09/23 History Laboratory Tests 05/08/23 23:46 WBC 12.7 H K/mm3 (4.5-10.0) RBC 4.37 L M/mm3 (4.6-6.20) Hgb 13.7 L g/dL (14.0-18.0) Hct 41.0 L % (42.0-52.0) MCV 93.8 fl (80-100) MCH 31.4 pg (26-34) MCHC 33.4 g/dl (32-36) RDW 12.6 % (11.5-14.5) Plt Count 155 k/mm3 (150-375) MPV 9.8 fl (7.4-10.4) Immature Gran % (Auto) 0.8 H % (0-0.5) Neut % (Auto) 92.7 H % (45.5-73.1) Lymph % (Auto) 1.4 L % (18.3-44.2) [place] % (Auto) 4.9 % (2.6-8.5) Eos % (Auto) 0.0 % (0-4.4) Baso % (Auto) 0.2 % (0.2-1.2) Lymph # (Auto) 0.18 L K/mm3 (0.9-3.2) [place] # (Auto) 0.6 K/mm3 (0.1-0.6) Eos # (Auto) 0.0 K/mm3 (0-0.3) Baso # (Auto) 0.0 K/mm3 (0.0-0.1) Abs Immat Gran (auto) 0.10 H K/mm3 (0.00-0.031) Absolute Neuts (auto) 11.7 H K/mm3 (1.3-6.7) Absolute Nucleated RBC 0.0 K/mm3 (0.0-0.012) Nucleated RBC % 0.0 % (0.0-0.2) Sodium 135 L mmol/L (137-145) Potassium 3.5 mmol/L (3.4-5.0) Chloride 101 mmol/L (98-107) Carbon Dioxide 28 mmol/L (22-30) Anion Gap 6 L mmol/L (8-16) BUN 15 mg/dL (9-20) Creatinine 0.90 mg/dL (0.7-1.3) Estim Creat Clear Calc 65 ml/min Estimated GFR > 60 (59 - ) Glucose 112 H mg/dL (65-110) Calcium 8.5 mg/dL (8.4-10.2) Total Bilirubin 0.9 mg/dL (0.2-1.3) AST 30 U/L (17-59) ALT 23 U/L (6-50) Alkaline Phosphatase 86 U/L (38-126) Total Protein 8.0 g/dL (6.3-8.2) Albumin 4.2 g/dL (3.5-5.1) Urine Color Yellow (Yellow) Urine Appearance Cloudy H (Clear) Urine pH 6.5 (5.0-9.0) Ur Specific [place] 1.025 (1.001-1.035) Urine Protein 2+ H mg/dL (Negative) Urine Glucose (UA) Negative mg/dL (Negative) Urine Ketones 2+ H mg/dL (Negative) Ur Blood (Man) 2+ H (Negative) Urine Nitrate Positive H (Negative) Urine Bilirubin Negative (Negative) Urine Urobilinogen 1.0 mg/dL (<2.0) Leukocyte Esterase Rfl 1+ H GABE/UL (Negative) Urine RBC 6-10 H /hpf (0-2) Urine WBC >100 H /hpf Ur Squamous Epith Cells None seen /hpf (Few) Urine Bacteria 4+ H /hpf Urine Casts 3-5 Influenza A (RT-PCR) Negative (Negative) Influenza B (RT-PCR) Negative (Negative) SARS-CoV-2 RNA (RT-PCR) Negative (Negative) Patient hx anesthesia problems: other (slow to awaken) Family hx anesthesia problems: none Results Review: All pre-operative results and documents have been reviewe
--- NOTE | 2023-05-09 07:51 | WPDURCON ---
Assessment and Plan Assessment and plan (1) Urinary tract infection: Qualifiers: Hematuria presence: with hematuria Urinary tract infection type: site unspecified Qualified Code(s): N39.0 - Urinary tract infection, site not specified; R31.9 - Hematuria, unspecified Code(s): N39.0 - Urinary tract infection, site not specified Status: Acute (2) Right ureteral calculus: Code(s): N20.1 - Calculus of ureter Status: Acute (3) Kidney stone on right side: Code(s): N20.0 - Calculus of kidney Status: Acute Plan right ureteral stone UTI Sepsis Plan for right stent and IV antibiotics. Will need definitive treatment following. Urology Consult Note HPI Date Seen: 05/09/23 Requesting Physician: Harpal Gallagher DO Primary Care Provider: eBbeto NapierMD Consult Narrative Narrative: Garcia Sandy Jr. is a 43 year old male with CP and requires CIC. Has fever and found to have 6mm right proximal stone with obstruction. Fever over night. Normal renal fuction. Review of Systems Review of Systems: alert and awake, no complaints of pain Eyes: Comments: normal ENT: Comments: normal Respiratory: Comments: no SOB PMFSH Past Medical History Medical History Anxiety Anxiety Cerebral palsy Cerebral palsy Chronic back pain Depression Depression GERD (gastroesophageal reflux disease) HTN (hypertension) Hydrocephalus Hyperlipidemia Hypertension Kidney stones Lordosis Scoliosis Seizures UTI (urinary tract infection) Surgical History Surgical History History of brain shunt History of hip surgery Bilateral osteotomies History of spinal fusion With jeff placement Family History Family History Other Hypertension Social History Social History Smoking status: Never smoker Alcohol intake: never Substance use: never Lack of Transportation: No Lack of Food: Never True Current Housing: I Have Housing Concerned About Future Housing: No Difficulty Paying Gas/Electric Bills: No Difficulty Paying for Meds: No Currently Unemployed: No Education: High School Diploma/GED Difficulty w/ Childcare or Family Care: No Living arrangements: with family Occupation/Education: other Spiritual care concerns: No Meds Home Medications and Allergies Home Medications Medication Instructions Recorded Confirmed Type losartan 25 mg tablet 25 mg PO DAILY 06/21/20 05/09/23 History clonazepam 1 mg tablet 1 mg PO DAILY 05/07/21 05/09/23 History paroxetine HCl 12.5 mg 12.5 mg PO DAILY 05/07/21 05/09/23 History tablet,extended release 24 hr (Paxil CR) paroxetine HCl 37.5 mg 37.5 mg PO DAILY 05/07/21 05/09/23 History tablet,extended release 24 hr (Paxil CR) clonidine HCl 0.1 mg tablet 0.1 mg PO DAILY PRN Anxiety 05/08/23 05/09/23 History fluvoxamine 100 mg tablet 50 mg PO BID 05/08/23 05/09/23 History lamotrigine 100 mg tablet 100 mg PO DAILY 05/08/23 05/09/23 History Allergies Allergy/AdvReac Type Severity Reaction Status Date / Time clarithromycin AdvReac Severe PARANOIA/PANIC Verified 05/09/23 02:51 AND ANXIETY ATTACKS Vital Signs Vital Signs - 24 hr 05/08/23 20:13 05/08/23 22:17 05/08/23 22:37 Temperature 37.6 C H 37.9 C H 39.6 C H Pulse Rate 120 H 125 H 143 H Respiratory Rate 16 22 H 20 Blood Pressure 140/80 132/85 131/82 Pulse Oximetry 95 98 97 Oxygen Delivery Room Air 05/09/23 00:38 05/08/23 23:40 05/08/23 23:04 Temperature 37.1 C 37.1 C Pulse Rate 112 H Respiratory Rate 18 Blood Pressure 118/74 Pulse Oximetry 98 94 Oxygen Delivery 05/09/23 00:09 05/09/23 00:15 05/09/23 00:16 Temperature Pulse
[2023-05-09] MEDS: LACTATED RINGERS 1,000 ML 30 ML IV CONT (08:02)
[2023-05-09] MEDS: ceFAZolin 1 GM/NS 50 ML 1 GM/50 ML BAG IVPB (08:02)
[2023-05-09] MEDS: LIDOCAINE HCL 2% GEL UROJET 10 ML PKG MUCOUS MEM (08:24)
--- NOTE | 2023-05-09 08:36 | W.PM.PROC2 ---
Procedure Note - Detailed Date of Procedure 05/09/23 Pre-op Diagnosis UTI, ureterolithiasis right proximal Post-op Diagnosis Same Procedure Performed cystoscopy and right retrograde pyelogram and right stent Surgeon Darrin Fleming MD Anesthesia MAC Indications fever and UTI and right proximal stone Findings bladder stone and right proximal stone Description of Procedure Patient was carefully placed in lithotomy as he has contracted lower extremities. His lower abdomen, phallus and scrotum was dressed and draped in sterile fashion. Urojet was place in urethra. Cystoscopy was completed and the bladder was inspected. An approximate 1cm stone and debris was visualized. The bladder was trabeculated. The right UO was intubbated with an open ended ureteral catheter and a retrograde study demonstrated an obstructing stone in the proximal ureter. A 6 bermudian variable length stent was placed. A good curl in the renal pelvis and in the bladder. A 16 bermudian roberto catheter was placed. Implants 6 bermudian stent Estimated Blood Loss 0 Urine Output 75 Complications No immediate complications Condition Stable
[2023-05-09] MEDS: lamoTRIgine 100 MG TABLET PO (12:23)
[2023-05-09] MEDS: clonazePAM (*CRX) 0.5 MG TABLET 1 MG PO (12:23)
--- NOTE | 2023-05-09 12:26 | PM.IMPN ---
Progress Note: A&P Assessment and Plan (1) Right ureteral calculus: Code(s): N20.1 - Calculus of ureter Status: Acute (2) Urinary tract infection: Qualifiers: Hematuria presence: with hematuria Urinary tract infection type: site unspecified Qualified Code(s): N39.0 - Urinary tract infection, site not specified; R31.9 - Hematuria, unspecified Code(s): N39.0 - Urinary tract infection, site not specified Status: Acute (3) Cerebral palsy: Code(s): G80.9 - Cerebral palsy, unspecified Status: Acute Plan # right urolithiasis # infected kidney stone # sepsis secondary to UTI associated with kidney stone -patient with fever and kidney stone likely infected stone -POD#0 cystoscopy with right ureter stent placed by Dr. Espan[place] on 05/09/2023 -IV fluids: Patient received several fluid boluses, continue maintenance fluids normal saline 125 cc/hour -hypertension from infection, triggered sepsis, treated with IV fluids and antibiotics. sepsis present on admission -antibiotic: Rocephin -pain control: P.r.n. morphine, [place], Tylenol -will monitor leukocytosis, repeat labs in a.m. # chronic conditions -cerebral palsy: Continue home Lamictal -anxiety: Continue home Paxil, fluvoxamine, klonopin. Family may bring home non-formulary meds. holding clonidine prn -essential hypertension: held Losartan Diet: Regular DVT prophylaxis: SCDs Code status: Full code Disposition: Likely home in 2-3 days Subjective Date/time seen: 05/09/23 12:26 Interval history: Patient seen and examined postoperative. Patient was found to have a right ureterolithiasis and urologist Dr. Fleming placed a stent in the right ureter. Patient postop has been hypotensive, had received anesthesia and morphine for pain control. We have given IV fluid boluses will continue with maintenance fluids to 125 cc normal saline. Will continue antibiotics for the infected stone. Family updated bedside. Patient denies fever, chills, nausea vomiting diarrhea. Review of Systems Review of Systems: 10 point ROS complete, negative other than what is specified in HPI. Limited due to his baseline mental status Exam Narrative: - GENERAL: Pleasant male thin, cerebral palsy. Well-nourished. - EYES: EOMI. Anicteric. - HENT: Moist mucous membranes. - LUNGS: Clear to auscultation bilaterally, no wheezing, rhonchi, or rales. - CARDIOVASCULAR: Regular rate and rhythm. - ABDOMEN: Soft, non-tender and non-distended. No palpable masses. - EXTREMITIES: No edema. Peripheral pulses 2+. - NEUROLOGIC: No focal neurological deficits. - PSYCHIATRIC: Awake, Alert. Appropriate mood and affect. - SKIN: No rashes or lesions. Warm. Objective Data Vital Signs Vital Signs: Vital Signs - 24 hr 05/08/23 20:13 05/08/23 22:17 05/08/23 22:37 Temperature 37.6 C H 37.9 C H 39.6 C H Pulse Rate 120 H 125 H 143 H Respiratory Rate 16 22 H 20 Blood Pressure 140/80 132/85 131/82 Pulse Oximetry 95 98 97 Oxygen Delivery Room Air Oxygen Flow Rate 05/09/23 00:38 05/08/23 23:40 05/08/23 23:04 Temperature 37.1 C 37.1 C Pulse Rate 112 H Respiratory Rate 18 Blood Pressure 118/74 Pulse Oximetry 98 94 Oxygen Delivery Oxygen Flow Rate 05/09/23 00:09 05/09/23 00:15 05/09/23 00:16 Temperature Pulse Rate Respiratory Rate Blood Pressure 118/74 Pulse Oximetry 94 94 94 Oxygen Delivery Oxygen Flow Rate 05/09/23 00:34 05/09/23 01:01 05/09/23 01:23 Temperature Pulse Rate 107 H Respiratory Rate 18 Blood Pressure 129/65 Pulse Oximetry 94 95 Oxygen Delivery Oxygen Flow Rate 05/09/23 01:55 05/09/23 03:40 05/09/23 04:00 Temperature 39.1 C H 39.1 C H Pulse Rate 103 H 107 H Respiratory Rate 17 16 Blood Pressure 109/69 110/50 L Pulse Oximetry 96 95 Oxygen Delivery Oxygen Flow Rate 05/09/23 08:30 05/09/23 08:45 05/09/23 09:00 Temperature 36.9 C Pulse Rate 95 95
--- NOTE | 2023-05-09 12:45 | PHAR ---
HOME MEDS VERIFIED = [facility] RX [id number] FLUVOXAMINE 50 MG , [id number] PAXIL CR 12.5 MG, RX [id number] PAXIL CR 37.5 MG
--- NOTE | 2023-05-09 12:51 | PC.NURSE ---
Losartan was not administered do NPO status this AM . I spoke with Dr Gallagher at bedside after patient returned from pacu and he gave verbal order to hold Losartan given patients BP.
[2023-05-10] VITALS: BP 118/66; PULSE 90; RESP 18; TEMP 36.3; O2SAT 94
[2023-05-10] MEDS: SODIUM CHLORIDE 0.9% IV 1,000 ML 125 ML IV CONT ×3 (01:27→16:45)
[2023-05-10 04:38] VITALS: BP 114/57; PULSE 84; RESP 16; TEMP 37; O2SAT 94
[2023-05-10 05:57] LABS: Basophils Absolute Auto 0.1 K/mm3 (0.0-0.1); Basophils Percent Auto 0.4 % (0.2-1.2); Eosinophils Absolute Auto 0.1 K/mm3 (0-0.3); Eosinophils Percent Auto 0.6 % (0-4.4); Hemoglobin 10.4 g/dL (14.0-18.0); Immature Granulocyte Absolute 0.16 K/mm3 (0.00-0.031); Immature Platelet Fraction Pct 4.6 % (0.9-11.2); Lymphocytes Absolute Auto 0.98 K/mm3 (0.9-3.2); Lymphocytes Percent Auto 6.2 % (18.3-44.2); Mean Corpuscular HGB Conc 32.5 g/dl (32-36); Mean Corpuscular Volume 95.5 fl (80-100); Monocytes Absolute Auto 0.8 K/mm3 (0.1-0.6); Monocytes Percent Auto 4.8 % (2.6-8.5); Neutrophils Absolute Auto 13.8 K/mm3 (1.3-6.7); Platelet Count Result 98 k/mm3 (150-375); Red Blood Count 3.35 M/mm3 (4.6-6.20); Red Cell Distribution Width 13.1 % (11.5-14.5); White Blood Count 15.9 K/mm3 (4.5-10.0)
[2023-05-10 06:08] LABS: Anion Gap 4 mmol/L (8-16); Blood Urea Nitrogen 12 mg/dL (9-20); Carbon Dioxide 23 mmol/L (22-30); Chloride 111 mmol/L (98-107); Estimated CRCL calculation 94 ml/min; Estimated Glomerular Filt Rate > 60; Glucose 87 mg/dL (65-110); Magnesium 1.9 mg/dL (1.6-2.3); Phosphorus 1.7 mg/dL (2.5-4.5); Potassium 3.3 mmol/L (3.4-5.0); Sodium 138 mmol/L (137-145)
[2023-05-10] MEDS: lamoTRIgine 100 MG TABLET PO (08:14)
[2023-05-10] MEDS: clonazePAM (*CRX) 0.5 MG TABLET 1 MG PO ×2 (08:14→19:11)
--- NOTE | 2023-05-10 09:26 | WPDANESPN ---
Anes - Prog Note Post-Op Date/Time: 05/10/23 09:26 Cardiovascular status: normal Respiratory status: normal Airway patency: baseline Mental status: baseline Post-Op hydration status: normal Vital Signs: Last Vital Signs Temp 37.0 C 05/10/23 04:38 Pulse 84 05/10/23 04:38 Resp 16 05/10/23 04:38 BP 114/57 L 05/10/23 04:38 Pulse Ox 94 05/10/23 04:38 O2 Del Method Room Air 05/10/23 08:00 O2 Flow Rate 8 05/09/23 08:45 Pain Score (VAS): 08/19 I/O: Intake & Output 05/09/23 05/10/23 05/10/23 23:59 07:59 15:59 Intake Total 1240 1150 1000 Output Total 250 750 Balance 765 177 2945 Laboratory Tests 05/10/23 05:39 05/10/23 05:39 05/10/23 05:39 WBC 15.9 H RBC 3.35 L Hgb 10.4 L D Hct 32.0 L MCV 95.5 MCH 31.0 MCHC 32.5 RDW 13.1 Plt Count 98 L MPV 11.0 H Immature Gran % (Auto) 1.0 H Neut % (Auto) 87.0 H Lymph % (Auto) 6.2 L [place] % (Auto) 4.8 Eos % (Auto) 0.6 Baso % (Auto) 0.4 Lymph # (Auto) 0.98 [place] # (Auto) 0.8 H Eos # (Auto) 0.1 Baso # (Auto) 0.1 Abs Immat Gran (auto) 0.16 H Absolute Neuts (auto) 13.8 H Absolute Nucleated RBC 0.0 Nucleated RBC % 0.0 % Immature Plt Fraction 4.6 Sodium 138 Potassium 3.3 L Chloride 111 H Carbon Dioxide 23 Anion Gap 4 L BUN 12 Creatinine 0.60 L Estim Creat Clear Calc 94 Estimated GFR > 60 Glucose 87 Calcium 7.0 L Phosphorus 1.7 L Magnesium 1.9 Microbiology 05/08/23 23:46 Urine Catheterized Urine Culture - Preliminary Post-procedural complaints: none Patient Feedback: Patient satisfied with anesthetic care. Other Findings: patient's gaurdian relayed information about patient's condition. She reports he had no complications related to anesthesia. She feels he is ready to go home.
[2023-05-10] MEDS: cefTRIAXone 2 GM/NS 100 ML 2 GM/100 ML BAG IVPB (09:53)
--- NOTE | 2023-05-10 11:17 | PM.IMPN ---
Progress Note: A&P Assessment and Plan (1) Right ureteral calculus: Code(s): N20.1 - Calculus of ureter Status: Acute (2) Urinary tract infection: Qualifiers: Hematuria presence: with hematuria Urinary tract infection type: site unspecified Qualified Code(s): N39.0 - Urinary tract infection, site not specified; R31.9 - Hematuria, unspecified Code(s): N39.0 - Urinary tract infection, site not specified Status: Acute (3) Cerebral palsy: Code(s): G80.9 - Cerebral palsy, unspecified Status: Acute (4) Anxiety: Code(s): F41.9 - Anxiety disorder, unspecified Status: Acute Plan # right urolithiasis # infected kidney stone # sepsis secondary to UTI associated with kidney stone -patient with fever and kidney stone likely infected stone -POD#1 cystoscopy with right ureter stent placed by Dr. Espana on 05/09/2023 -IV fluids:? Patient received several fluid boluses, continue maintenance fluids normal saline 125 cc/hour -we will continue IV fluids, patient is complaining some dyspnea, his lungs are clear to auscultation, will check chest x-ray -hypotension from infection, triggered sepsis, treated with IV fluids and antibiotics. sepsis present on admission. BP improved -antibiotic: increased Rocephin dose to 2g for worsening WBC -pain control: P.r.n. morphine, [place], Tylenol -will monitor leukocytosis, repeat labs in a.m. # chronic conditions -cerebral palsy:? Continue home Lamictal -anxiety: Continue home Paxil, fluvoxamine, klonopin.? Family may bring home non-formulary meds. holding clonidine prn -essential hypertension: continue to hold Losartan Diet:??Regular DVT prophylaxis:??SCDs Code status:?Full code Disposition:?home in 2-3 days Subjective Date/time seen: 05/10/23 11:17 Interval history: Patient seen and examined. He appears to be doing well. He does complain of worsening dyspnea. His lungs are clear, will obtain chest x-ray. Worsening leukocytosis, I discussed with Pharmacy to increased dose of Rocephin to 2 g daily. Patient has a history of Klebsiella in urine which was only resistant to ampicillin, current urine culture still pending. Patient denies fever, chills, nausea vomiting, diarrhea. Review of Systems Review of Systems: 10 point ROS complete, negative other than what is specified in HPI. Exam Narrative: - GENERAL:? Pleasant male thin, cerebral palsy, he is restless and tachypneic. - EYES: EOMI. Anicteric. - HENT: Moist mucous membranes. - LUNGS: Clear to auscultation bilaterally, no wheezing, rhonchi, or rales. Tachypneic - CARDIOVASCULAR: Regular rate and rhythm. - ABDOMEN: Soft, non-tender and non-distended. No palpable masses. - EXTREMITIES: No edema. Peripheral pulses 2+. Grossly deformed extremity due to CP - NEUROLOGIC: No focal neurological deficits. - PSYCHIATRIC: Awake, Alert. Anxious mood and affect. - SKIN: No rashes or lesions. Warm. Objective Data Vital Signs Vital Signs: Vital Signs - 24 hr 05/09/23 14:20 05/09/23 20:00 05/09/23 20:31 Temperature 36.7 C 36.4 C Pulse Rate 89 100 Respiratory Rate 16 20 Blood Pressure 99/62 L 110/52 L Pulse Oximetry 94 95 Oxygen Delivery 05/09/23 20:00 05/10/23 00:00 05/10/23 04:38 Temperature 36.3 C L 37.0 C Pulse Rate 90 84 Respiratory Rate 18 16 Blood Pressure 118/66 114/57 L Pulse Oximetry 94 94 Oxygen Delivery Room Air 05/10/23 08:00 Temperature Pulse Rate Respiratory Rate Blood Pressure Pulse Oximetry Oxygen Delivery Room Air Intake/Output Intake/Output: Intake & Output 05/07/23 05/08/23 05/09/23 05/10/23 23:59 23:59 23:59 23:59 Intake Total 4840 2150 Output Total 75 805 750 Balance -75 4035 1400 Meds/Results Medications: Active Medications Generic Name Dose Route Start Last Admin Trade Name Freq PRN Reason Stop Dose Admin Acetaminophen 650 mg 05/09/23 05:28 Acetaminophen 325 Mg Tablet PO Q4H ME
[2023-05-10 12:00] VITALS: BP 111/72; PULSE 88; RESP 20; TEMP 36.7; O2SAT 99
--- NOTE | 2023-05-10 12:41 | WPDUROPN2 ---
Progress Note: A&P Assessment and Plan (1) Right ureteral calculus: Code(s): N20.1 - Calculus of ureter Status: Acute Assessment and Plan: has stent--ESWL likely as outpatient and injfection treated (2) Urinary tract infection: Qualifiers: Hematuria presence: with hematuria Urinary tract infection type: site unspecified Qualified Code(s): N39.0 - Urinary tract infection, site not specified; R31.9 - Hematuria, unspecified Code(s): N39.0 - Urinary tract infection, site not specified Status: Acute Assessment and Plan: cult pending and treating IV currently (3) Cerebral palsy: Code(s): G80.9 - Cerebral palsy, unspecified Status: Acute Assessment and Plan: roberto--DC upon discharge---will resume CIC Subjective Subjective Date/Time Seen: 05/10/23 12:41 Interval history: Placed stent on right yesterday Stable over night Roberto in place Exam Narrative: roberto in place No complaints of pain Urinary Catheter: Urinary Catheter: patent and draining Objective Data Vital Signs Vital Signs: Vital Signs - 24 hr 05/09/23 14:20 05/09/23 20:00 05/09/23 20:31 Temperature 36.7 C 36.4 C Pulse Rate 89 100 Respiratory Rate 16 20 Blood Pressure 99/62 L 110/52 L Pulse Oximetry 94 95 Oxygen Delivery 05/09/23 20:00 05/10/23 00:00 05/10/23 04:38 Temperature 36.3 C L 37.0 C Pulse Rate 90 84 Respiratory Rate 18 16 Blood Pressure 118/66 114/57 L Pulse Oximetry 94 94 Oxygen Delivery Room Air 05/10/23 08:00 05/10/23 12:00 Temperature 36.7 C Pulse Rate 88 Respiratory Rate 20 Blood Pressure 111/72 Pulse Oximetry 99 Oxygen Delivery Room Air Intake/Output Intake/Output: Intake & Output 05/07/23 05/08/23 05/09/23 05/10/23 23:59 23:59 23:59 23:59 Intake Total 4840 2250 Output Total 75 805 750 Balance -75 4035 1500 Meds/Results Medications: Active Medications Generic Name Dose Route Start Last Admin Trade Name Freq PRN Reason Stop Dose Admin Acetaminophen 650 mg 05/09/23 05:28 Acetaminophen 325 Mg Tablet PO Q4H PRN Mild Pain (1-3) or Fever Hydrocodone Bitart/Acetaminophen 1 tab 05/09/23 12:34 Hydrocodone/Acetaminophen (*Crx) 5-325 Mg Tablet PO Q4H PRN Pain Rated 4-6 Hydrocodone Bitart/Acetaminophen 1 tab 05/09/23 12:34 Hydrocodone/Acetaminophen (*Crx) 10-325 Mg Tablet PO Q4H PRN Pain Rated 7-10 Al Hydrox/Mg Hydrox/Simethicone 30 ml 05/09/23 05:28 Mag Hydrox/Al Hydrox/Simeth 30 Ml Udc PO QID PRN Dyspepsia Clonazepam 1 mg 05/09/23 09:00 05/10/23 08:14 Clonazepam (*Crx) 0.5 Mg Tablet PO 1 mg DAILY LAKSHMI Administration Clonidine HCl 0.1 mg 05/09/23 04:25 Clonidine Hcl 0.1 Mg Tablet PO DAILY PRN Anxiety Home Med 50 each 05/09/23 17:00 05/10/23 08:16 Home Medication-Fluvoxamine 50 Mg PO 06/08/23 16:59 50 each BID LAKSHMI Administration Home Med 12.5 each 05/10/23 09:00 05/10/23 08:16 Home Medication-Paxil Cr 12.5 Mg PO 06/09/23 08:59 12.5 each DAILY LAKSHMI Administration Home Med 37.5 each 05/10/23 09:00 05/10/23 08:16 Home Medication-Paroxetine Hcl [Paxil Cr] 37.5 Mg PO 06/09/23 08:59 37.5 each DAILY LAKSHMI Administration Sodium Chloride 1,000 mls @ 125 mls/hr 05/09/23 01:10 05/10/23 08:17 Normal Saline Iv IV CONT 125 mls/hr .Q8H LAKSHMI Administration Ceftriaxone Sodium 2 gm in 100 mls @ 200 mls/hr 05/10/23 10:00 05/10/23 10:23 Rocephin 2 Gm/Ns 100 Ml IVPB Infused Q24H LAKSHMI Infusion Lamotrigine 100 mg 05/09/23 09:00 05/10/23 08:14 Lamotrigine 100 Mg Tablet PO 100 mg DAILY LAKSHMI Administration Losartan Potassium 25 mg 05/09/23 09:00 05/09/23 10:23 Losartan Potassium 25 Mg Tablet PO Not Given DAILY LAKSHMI Morphine Sulfate 2 mg 05/09/23 05:28 Morphine Sulfate (*Crx) 2 Mg/Ml Inj IV PUSH Q4H PRN Pain Rated 7-10 Radiology Results: IT
[2023-05-10 16:00] VITALS: BP 126/98; PULSE 84; RESP 20; TEMP 37.2; O2SAT 99
[2023-05-10 20:00] VITALS: BP 113/76; PULSE 83; RESP 16; TEMP 35.8; O2SAT 100
[2023-05-11] VITALS: BP 111/62; PULSE 83; RESP 14; TEMP 35.8; O2SAT 93
[2023-05-11] MEDS: SODIUM CHLORIDE 0.9% IV 1,000 ML 125 ML IV CONT ×3 (00:25→16:27)
[2023-05-11 04:00] VITALS: BP 138/78; PULSE 77; RESP 16; TEMP 35.9; O2SAT 95
[2023-05-11 06:06] LABS: Basophils Percent Auto 0.3 % (0.2-1.2); Eosinophils Percent Auto 0.4 % (0-4.4); Hematocrit 32.9 % (42.0-52.0); Hemoglobin 10.8 g/dL (14.0-18.0); Immature Granulocyte Absolute 0.17 K/mm3 (0.00-0.031); Immature Granulocyte Percent A 1.6 % (0-0.5); Immature Platelet Fraction Pct 4.9 % (0.9-11.2); Lymphocytes Absolute Auto 0.85 K/mm3 (0.9-3.2); Lymphocytes Percent Auto 7.8 % (18.3-44.2); Mean Corpuscular HGB Conc 32.8 g/dl (32-36); Mean Corpuscular Hemoglobin 31.1 pg (26-34); Mean Corpuscular Volume 94.8 fl (80-100); Mean Platelet Volume 10.9 fl (7.4-10.4); Monocytes Absolute Auto 0.7 K/mm3 (0.1-0.6); Neutrophils Absolute Auto 9.2 K/mm3 (1.3-6.7); Neutrophils Percent Auto 83.9 % (45.5-73.1); Platelet Count Result 100 k/mm3 (150-375); Red Blood Count 3.47 M/mm3 (4.6-6.20); Red Cell Distribution Width 12.9 % (11.5-14.5); White Blood Count 10.9 K/mm3 (4.5-10.0)
[2023-05-11 06:19] LABS: Anion Gap 4 mmol/L (8-16); Blood Urea Nitrogen 5 mg/dL (9-20); Calcium 7.1 mg/dL (8.4-10.2); Carbon Dioxide 27 mmol/L (22-30); Chloride 108 mmol/L (98-107); Estimated CRCL calculation 94 ml/min; Estimated Glomerular Filt Rate > 60; Glucose 98 mg/dL (65-110); Potassium 3.2 mmol/L (3.4-5.0); Sodium 139 mmol/L (137-145)
[2023-05-11 08:00] VITALS: BP 124/61; PULSE 88; RESP 18; TEMP 36.4; O2SAT 92
[2023-05-11] MEDS: clonazePAM (*CRX) 0.5 MG TABLET 1 MG PO (08:13)
[2023-05-11] MEDS: ACETAMINOPHEN 325 MG TABLET 650 MG PO ×2 (08:13→17:43)
[2023-05-11] MEDS: lamoTRIgine 100 MG TABLET PO (08:14)
[2023-05-11 08:48] VITALS: O2SAT 91
[2023-05-11] MEDS: cefTRIAXone 2 GM/NS 100 ML 2 GM/100 ML BAG IVPB (10:47)
[2023-05-11 12:00] VITALS: BP 129/67; PULSE 78; RESP 20; TEMP 36.6; O2SAT 98
--- NOTE | 2023-05-11 13:56 | WPDUROPN2 ---
Progress Note: A&P Assessment and Plan (1) Right ureteral calculus: Code(s): N20.1 - Calculus of ureter Status: Acute Assessment and Plan: Get KUB to see if stone is visible, if so we could plan to do a lithotripsy as an outpatient, otherwise he will need a ureteroscopy. He will need antibiotics, culture appropriate for 10-14 days outpatient, then f/u in the office in a week to repeat a urine culture and schedule surgery. Remove roberto prior to discharge and patient will resume CIC. (2) Urinary tract infection: Qualifiers: Hematuria presence: with hematuria Urinary tract infection type: site unspecified Qualified Code(s): N39.0 - Urinary tract infection, site not specified; R31.9 - Hematuria, unspecified Code(s): N39.0 - Urinary tract infection, site not specified Status: Acute Subjective Subjective Date/Time Seen: 05/11/23 13:56 Post Op day: 2 Interval history: S/P Cystoscopy, stent Right ureter, right retrograde pyelogram. Pt. Culture growing Klebsiella and E-Coli. C/O discomfort d/t positioning but I am concerned it could be stent pain. Catheter draining to gravity. Review of Systems Cardiovascular: Cardiovascular: Reports chest pain Respiratory: Respiratory: Reports no additional respiratory complaints Gastrointestinal: Gastrointestinal: Denies abdominal pain, Denies nausea and Denies vomiting Genitourinary: Genitourinary: Denies hematuria, Denies dysuria, Denies flank pain, Denies urinary frequency, Denies urinary hesitancy and Denies urinary urgency Exam Const: General: cooperative and comfortable Resp: Effort & Inspection: normal respiratory effort Cardio: Rate: regular rate GI: GI Palp: Yes Soft to palpation and No Tenderness to palpation present (GI) : General: Yes no CVA tenderness Urinary Catheter: Urinary Catheter: patent and draining and urine clear Extrem: Right lower extremity: no edema Left lower extremity: no edema Objective Data Vital Signs Vital Signs: Vital Signs - 24 hr 05/10/23 16:00 05/10/23 20:00 05/11/23 00:00 Temperature 99 F 96.5 F L 96.4 F L Pulse Rate 84 83 83 Respiratory Rate 20 16 14 Blood Pressure 126/98 H 113/76 111/62 Pulse Oximetry 99 100 93 Oxygen Delivery 05/11/23 04:00 05/11/23 08:48 05/11/23 08:00 Temperature 96.7 F L Pulse Rate 77 Respiratory Rate 16 Blood Pressure 138/78 Pulse Oximetry 95 91 Oxygen Delivery Room Air Room Air 05/11/23 08:00 Temperature 97.6 F Pulse Rate 88 Respiratory Rate 18 Blood Pressure 124/61 Pulse Oximetry 92 Oxygen Delivery Intake/Output Intake/Output: Intake & Output 05/08/23 05/09/23 05/10/23 05/11/23 23:59 23:59 23:59 23:59 Intake Total 4840 3250 2902 Output Total 75 805 1950 1350 Balance -75 4035 1300 1552 Meds/Results Medications: Active Medications Generic Name Dose Route Start Last Admin Trade Name Freq PRN Reason Stop Dose Admin Acetaminophen 650 mg 05/09/23 05:28 05/11/23 08:13 Acetaminophen 325 Mg Tablet PO 650 mg Q4H PRN Administration Mild Pain (1-3) or Fever Hydrocodone Bitart/Acetaminophen 1 tab 05/09/23 12:34 Hydrocodone/Acetaminophen (*Crx) 5-325 Mg Tablet PO Q4H PRN Pain Rated 4-6 Hydrocodone Bitart/Acetaminophen 1 tab 05/09/23 12:34 Hydrocodone/Acetaminophen (*Crx) 10-325 Mg Tablet PO Q4H PRN Pain Rated 7-10 Al Hydrox/Mg Hydrox/Simethicone 30 ml 05/09/23 05:28 Mag Hydrox/Al Hydrox/Simeth 30 Ml Udc PO QID PRN Dyspepsia Clonazepam 1 mg 05/09/23 09:00 05/11/23 08:13 Clonazepam (*Crx) 0.5 Mg Tablet PO 1 mg DAILY LAKSHMI Administration Clonidine HCl 0.1 mg 05/09/23 04:25 Clonidine Hcl 0.1 Mg Tablet PO DAILY PRN Anxiety Home Med 50 each 05/09/23 17:00 05/11/23 08:13 Home Medication-Fluvoxamine 50 Mg PO 06/08/23 16:59 50 each BID LAKSHMI Administration Home Med 12.5 each 05/10/23 09:00 05/11/23 08:13 Home Medicat
--- NOTE | 2023-05-11 14:53 | PM.IMPN ---
Progress Note: A&P Assessment and Plan (1) Right ureteral calculus: Code(s): N20.1 - Calculus of ureter Status: Acute (2) Urinary tract infection: Qualifiers: Hematuria presence: with hematuria Urinary tract infection type: site unspecified Qualified Code(s): N39.0 - Urinary tract infection, site not specified; R31.9 - Hematuria, unspecified Code(s): N39.0 - Urinary tract infection, site not specified Status: Acute (3) Cerebral palsy: Code(s): G80.9 - Cerebral palsy, unspecified Status: Acute (4) Kidney stone on right side: Code(s): N20.0 - Calculus of kidney Status: Acute (5) Seizures: Code(s): R56.9 - Unspecified convulsions Status: Acute (6) Scoliosis: Code(s): M41.9 - Scoliosis, unspecified Status: Acute (7) Lordosis: Code(s): M40.50 - Lordosis, unspecified, site unspecified Status: Acute (8) Hypertension: Code(s): I10 - Essential (primary) hypertension Status: Acute (9) Hyperlipidemia: Code(s): E78.5 - Hyperlipidemia, unspecified Status: Acute (10) Hydrocephalus: Code(s): G91.9 - Hydrocephalus, unspecified Status: Acute (11) Chronic back pain: Code(s): M54.9 - Dorsalgia, unspecified; G89.29 - Other chronic pain Status: Acute (12) Anxiety: Code(s): F41.9 - Anxiety disorder, unspecified Status: Acute (13) Acute right flank pain: Code(s): R10.9 - Unspecified abdominal pain Status: Acute (14) Aspiration pneumonia: Code(s): J69.0 - Pneumonitis due to inhalation of food and vomit Status: Acute Plan Plan # right urolithiasis # infected kidney stone # sepsis secondary to UTI associated with kidney stone -patient with fever and kidney stone likely infected stone -POD#1 cystoscopy with right ureter stent placed by Dr. Espana on 05/09/2023 -IV fluids:? Patient received several fluid boluses, continue maintenance fluids normal saline 125 cc/hour -we will continue IV fluids, patient is complaining some dyspnea, his lungs are clear to auscultation, will check?chest x-ray -hypotension from infection, triggered sepsis, treated with IV fluids and antibiotics. sepsis present on admission. BP improved -antibiotic:?increased Rocephin dose to 2g?for worsening WBC -pain control: P.r.n. morphine, [place], Tylenol -will monitor leukocytosis, repeat labs in a.m. 05/11: Leukocytosis resolved. 15.9 to 10.9. No longer septic. tachypnea and tachycardia resolved. hypokalemia treated with 40 meq IV K. CaGluconate held for precipitation with ceftriaxone. Per urology, Get KUB to see if stone is visible, if so we could plan to do a lithotripsy as an outpatient, otherwise he will need a ureteroscopy. He will need antibiotics, culture appropriate for 10-14 days outpatient, then f/u in the office in a week to repeat a urine culture and schedule surgery. Remove roberto prior to discharge and patient will resume CIC Cx now growing ecoli and klebsiella. sensitive to everything except I to amp/sulb. CXR showing bibasilar consolidation # chronic conditions -cerebral palsy:? Continue home Lamictal -anxiety: Continue home Paxil, fluvoxamine, klonopin.? Family may bring home non-formulary meds. holding clonidine prn -essential hypertension: continue to hold Losartan Diet:??Regular DVT prophylaxis:??SCDs Code status:?Full code Disposition:?home in 2-3 days Subjective Date/time seen: 05/11/23 14:53 Interval history: symptoms of anxiety but denies feeling sick urine color has improved over last 12 hrs since starting 2g rocephin Per urology Get KUB to see if stone is visible, if so we could plan to do a lithotripsy as an outpatient, otherwise he will need a ureteroscopy. He will need antibiotics, culture appropriate for 10-14 days outpatient, then f/u in the office in a week to repeat a urine culture and schedule surgery. Remove roberto prior to discharge and patient
[2023-05-11] MEDS: POTASSIUM CHLORIDE INJ 40 MEQ in SODIUM CHLORIDE 0.9% IV 500 ML 130 MEQ IVPB (16:29)
[2023-05-11 22:00] VITALS: BP 117/75; PULSE 87; RESP 18; TEMP 36; O2SAT 93
[2023-05-12] MEDS: SODIUM CHLORIDE 0.9% IV 1,000 ML 125 ML IV CONT ×2 (04:20→13:07)
[2023-05-12 06:00] VITALS: BP 136/75; PULSE 90; RESP 18; TEMP 37.7; O2SAT 97
[2023-05-12 06:08] LABS: Basophils Percent Auto 0.4 % (0.2-1.2); Eosinophils Absolute Auto 0.1 K/mm3 (0-0.3); Eosinophils Percent Auto 1.1 % (0-4.4); Hematocrit 35.5 % (42.0-52.0); Hemoglobin 11.6 g/dL (14.0-18.0); Immature Granulocyte Absolute 0.05 K/mm3 (0.00-0.031); Immature Granulocyte Percent A 0.6 % (0-0.5); Lymphocytes Absolute Auto 0.63 K/mm3 (0.9-3.2); Lymphocytes Percent Auto 7.8 % (18.3-44.2); Mean Corpuscular HGB Conc 32.7 g/dl (32-36); Mean Corpuscular Hemoglobin 30.7 pg (26-34); Mean Corpuscular Volume 93.9 fl (80-100); Mean Platelet Volume 11.1 fl (7.4-10.4); Monocytes Absolute Auto 0.5 K/mm3 (0.1-0.6); Monocytes Percent Auto 6.2 % (2.6-8.5); Neutrophils Absolute Auto 6.8 K/mm3 (1.3-6.7); Neutrophils Percent Auto 83.9 % (45.5-73.1); Platelet Count Result 113 k/mm3 (150-375); Red Blood Count 3.78 M/mm3 (4.6-6.20); Red Cell Distribution Width 13.2 % (11.5-14.5); White Blood Count 8.1 K/mm3 (4.5-10.0)
[2023-05-12 06:10] VITALS: TEMP 37.7
[2023-05-12 06:10] LABS: Anion Gap 6 mmol/L (8-16); Blood Urea Nitrogen 3 mg/dL (9-20); Calcium 7.5 mg/dL (8.4-10.2); Carbon Dioxide 25 mmol/L (22-30); Chloride 111 mmol/L (98-107); Estimated CRCL calculation 94 ml/min; Estimated Glomerular Filt Rate > 60; Glucose 130 mg/dL (65-110); Potassium 3.5 mmol/L (3.4-5.0); Sodium 142 mmol/L (137-145)
[2023-05-12] MEDS: ACETAMINOPHEN 325 MG TABLET 650 MG PO (06:10)
[2023-05-12] MEDS: lamoTRIgine 100 MG TABLET PO (08:52)
[2023-05-12] MEDS: clonazePAM (*CRX) 0.5 MG TABLET 1 MG PO ×2 (09:05→17:02)
[2023-05-12] MEDS: cefTRIAXone 2 GM/NS 100 ML 2 GM/100 ML BAG IVPB (10:14)
[2023-05-12 14:00] VITALS: BP 146/80; PULSE 84; RESP 20; TEMP 36.7; O2SAT 99
--- NOTE | 2023-05-12 20:17 | PM.IMPN ---
Progress Note: A&P Assessment and Plan (1) Aspiration pneumonia: Code(s): J69.0 - Pneumonitis due to inhalation of food and vomit Status: Acute (2) Right ureteral calculus: Code(s): N20.1 - Calculus of ureter Status: Acute (3) Urinary tract infection: Qualifiers: Hematuria presence: with hematuria Urinary tract infection type: site unspecified Qualified Code(s): N39.0 - Urinary tract infection, site not specified; R31.9 - Hematuria, unspecified Code(s): N39.0 - Urinary tract infection, site not specified Status: Acute (4) Cerebral palsy: Code(s): G80.9 - Cerebral palsy, unspecified Status: Acute (5) Kidney stone on right side: Code(s): N20.0 - Calculus of kidney Status: Acute (6) Seizures: Code(s): R56.9 - Unspecified convulsions Status: Acute (7) Scoliosis: Code(s): M41.9 - Scoliosis, unspecified Status: Acute (8) Lordosis: Code(s): M40.50 - Lordosis, unspecified, site unspecified Status: Acute (9) Hypertension: Code(s): I10 - Essential (primary) hypertension Status: Acute (10) Hyperlipidemia: Code(s): E78.5 - Hyperlipidemia, unspecified Status: Acute (11) Hydrocephalus: Code(s): G91.9 - Hydrocephalus, unspecified Status: Acute (12) Chronic back pain: Code(s): M54.9 - Dorsalgia, unspecified; G89.29 - Other chronic pain Status: Acute (13) Anxiety: Code(s): F41.9 - Anxiety disorder, unspecified Status: Acute (14) Acute right flank pain: Code(s): R10.9 - Unspecified abdominal pain Status: Acute Plan # right urolithiasis # infected kidney stone # sepsis secondary to UTI associated with kidney stone -patient with fever and kidney stone likely infected stone -POD#1 cystoscopy with right ureter stent placed by Dr. Espana on 05/09/2023 -IV fluids:? Patient received several fluid boluses, continue maintenance fluids normal saline 125 cc/hour -we will continue IV fluids, patient is complaining some dyspnea, his lungs are clear to auscultation, will check?chest x-ray -hypotension from infection, triggered sepsis, treated with IV fluids and antibiotics. sepsis present on admission. BP improved -antibiotic:?increased Rocephin dose to 2g?for worsening WBC -pain control: P.r.n. morphine, [place], Tylenol -will monitor leukocytosis, repeat labs in a.m. 05/11:?Leukocytosis resolved. 15.9 to 10.9. No longer septic. tachypnea and tachycardia resolved. hypokalemia treated with 40 meq IV K. CaGluconate held for precipitation with ceftriaxone. Per urology, Get KUB to see if stone is visible, if so we could plan to do a lithotripsy as an outpatient, otherwise he will need a ureteroscopy. He will need antibiotics, culture appropriate for 10-14 days outpatient, then f/u in the office in a week to repeat a urine culture and schedule surgery. Remove roberto prior to discharge and patient will resume CIC Cx now growing ecoli and klebsiella. sensitive to everything except I to amp/sulb. CXR showing bibasilar consolidation 05/12: leukocytosis resolved. 8.1 6mm stone in R kidney per urology [place]ol[place], recommend lithotripsy outpt Does the pt need a roberto and how long will be be on ceftriaxone and should he go on oral abx? Discuss with urology ALEX # chronic conditions -cerebral palsy:? Continue home Lamictal -anxiety: Continue home Paxil, fluvoxamine, klonopin.? Family may bring home non-formulary meds. holding clonidine prn -essential hypertension: continue to hold Losartan Diet:??Regular DVT prophylaxis:??SCDs Code status:?Full code Disposition:?home in 2-3 days Subjective Date/time seen: 05/12/23 20:17 Interval history: complaining of fluid overload and hands getting puffy. stopped fluids. Review of Systems Review of Systems: no other complaints Exam Narrative: - GENERAL:? Pleasant male thin, cerebral palsy,? he is restless and tachypneic. - E
[2023-05-12 20:38] VITALS: BP 148/89; PULSE 75; RESP 18; TEMP 36.5; O2SAT 100
[2023-05-13 05:31] VITALS: BP 136/68; PULSE 67; RESP 18; TEMP 36.7; O2SAT 95
[2023-05-13] MEDS: clonazePAM (*CRX) 0.5 MG TABLET 1 MG PO (08:38)
[2023-05-13] MEDS: lamoTRIgine 100 MG TABLET PO (08:38)
[2023-05-13] MEDS: AMOXICILLIN/CLAVULANATE K 875-125 MG TAB 1 TABLET PO (08:39)
[2023-05-13] MEDS: POTASSIUM PHOS/SODIUM PHOS 250 MG TABLET PO (09:29)
--- NOTE | 2023-05-13 12:18 | PM.DS ---
DS: Admitting Diagnosis Discharge Date May 13, 2023 Admitting Diagnosis Right ureteral calculus and UTI DS: Discharge Diagnosis Discharge Diagnosis (1) Aspiration pneumonia: Code(s): J69.0 - Pneumonitis due to inhalation of food and vomit Status: Acute (2) Right ureteral calculus: Code(s): N20.1 - Calculus of ureter Status: Acute (3) Urinary tract infection: Qualifiers: Hematuria presence: with hematuria Urinary tract infection type: site unspecified Qualified Code(s): N39.0 - Urinary tract infection, site not specified; R31.9 - Hematuria, unspecified Code(s): N39.0 - Urinary tract infection, site not specified Status: Acute (4) Cerebral palsy: Code(s): G80.9 - Cerebral palsy, unspecified Status: Acute (5) Kidney stone on right side: Code(s): N20.0 - Calculus of kidney Status: Acute (6) Seizures: Code(s): R56.9 - Unspecified convulsions Status: Acute (7) Scoliosis: Code(s): M41.9 - Scoliosis, unspecified Status: Acute (8) Lordosis: Code(s): M40.50 - Lordosis, unspecified, site unspecified Status: Acute (9) Hypertension: Code(s): I10 - Essential (primary) hypertension Status: Acute (10) Hyperlipidemia: Code(s): E78.5 - Hyperlipidemia, unspecified Status: Acute (11) Hydrocephalus: Code(s): G91.9 - Hydrocephalus, unspecified Status: Acute (12) Chronic back pain: Code(s): M54.9 - Dorsalgia, unspecified; G89.29 - Other chronic pain Status: Acute (13) Anxiety: Code(s): F41.9 - Anxiety disorder, unspecified Status: Acute (14) Acute right flank pain: Code(s): R10.9 - Unspecified abdominal pain Status: Acute Plan # right urolithiasis # infected kidney stone # sepsis secondary to UTI associated with kidney stone -patient with fever and kidney stone likely infected stone -POD#1 cystoscopy with right ureter stent placed by Dr. Espana on 05/09/2023 -IV fluids:? Patient received several fluid boluses, continue maintenance fluids normal saline 125 cc/hour -we will continue IV fluids, patient is complaining some dyspnea, his lungs are clear to auscultation, will check?chest x-ray -hypotension from infection, triggered sepsis, treated with IV fluids and antibiotics. sepsis present on admission. BP improved -antibiotic:?increased Rocephin dose to 2g?for worsening WBC -pain control: P.r.n. morphine, [place], Tylenol -will monitor leukocytosis, repeat labs in a.m. 05/11:?Leukocytosis resolved. 15.9 to 10.9. No longer septic. tachypnea and tachycardia resolved. hypokalemia treated with 40 meq IV K. CaGluconate held for precipitation with ceftriaxone. Per urology, Get KUB to see if stone is visible, if so we could plan to do a lithotripsy as an outpatient, otherwise he will need a ureteroscopy. He will need antibiotics, culture appropriate for 10-14 days outpatient, then f/u in the office in a week to repeat a urine culture and schedule surgery. Remove roberto prior to discharge and patient will resume CIC Cx now growing ecoli and klebsiella. sensitive to everything except I to amp/sulb. CXR showing bibasilar consolidation 05/12: leukocytosis resolved. 8.1 6mm stone in R kidney per urology [place], recommend lithotripsy outpt Does the pt need a roberto and how long will be be on ceftriaxone and should he go on oral abx? Discuss with urology ALEX # chronic conditions -cerebral palsy:? Continue home Lamictal -anxiety: Continue home Paxil, fluvoxamine, klonopin.? Family may bring home non-formulary meds. holding clonidine prn -essential hypertension: continue to hold Losartan Diet:??Regular DVT prophylaxis:??SCDs Code status:?Full code Disposition:?home in 2-3 days DS: Summary Hospital Course Hospital Course: Patient was admitted for right ureteral stone with stent placement. Also had dirty urinalysis and will be discharged on antibiotics. Patient may h
== END 2023-05-13 13:24 | disposition home or self-care (01) | DRG 659 ==
LOC: ANHED 05-09 01:13 → ANH3MED 05-09 01:50
PROVIDERS: Urology; Admitting Provider Family Medicine; Emergency Provider Preventive Medicine Aerospace Medicine; PCP Internal Medicine; Visit Provider Chiropractor
PROC: 0T768DZ Dilation of Right Ureter with Intraluminal Device, Via Natural or Artificial Opening Endoscopic (ICD-10-PCS; CPT 52352; principal; 2023-05-09 08:30)
DX: N20.2 Calculus of kidney with calculus of ureter (principal); A41.9 Sepsis, unspecified organism; J69.0 Pneumonitis due to inhalation of food and vomit; N39.0 Urinary tract infection, site not specified; G91.9 Hydrocephalus, unspecified; B96.20 Unspecified Escherichia coli [E. coli] as the cause of diseases classified elsewhere; B96.1 Klebsiella pneumoniae [K. pneumoniae] as the cause of diseases classified elsewhere; E87.6 Hypokalemia; I10 Essential (primary) hypertension; E78.5 Hyperlipidemia, unspecified; F41.9 Anxiety disorder, unspecified; F32.A Depression, unspecified; G80.9 Cerebral palsy, unspecified; K21.9 Gastro-esophageal reflux disease without esophagitis; M40.50 Lordosis, unspecified, site unspecified; N31.9 Neuromuscular dysfunction of bladder, unspecified; R31.9 Hematuria, unspecified; R56.9 Unspecified convulsions; Z20.822 Contact with and (suspected) exposure to COVID-19; Z98.1 Arthrodesis status
CPT/HCPCS: 36415; 71045; 74018; 74176; 74420; 80048; 80053; 81001; 83735; 84100; 85025; 85055; 87077; 87086; 87186; 87636; 96365; 96375; 99285; A9270; C1758; C1769; C2617; J0690; J0696; J1170; J2250; J2270; J2371; J2704; J3010; J3480; J7030; J7040; J7120; Q9966

== ENCOUNTER 2023-05-22 03:04 | Day surgery (SDC) | payer MEDICARE, MEDICAID, SELFPAY ==
[2023-05-20 10:28] VITALS: BMI 25.4
--- NOTE | 2023-05-20 10:34 | PC.NURSE ---
Report to the Outpatient Waiting Room, entrance under the green pavilion located off [facility], at time 1030 on date 05/22/23. Planned Procedure Time: 1230. Time changes happen often and if your time is changed the preop area will call you the afternoon before. - You and your visitor will be asked to self-screen and do not enter if you have any COVID symptoms. - A mask is optional within the hospital at this time. Patients may have clear liquids (water, carbonated beverages, clear teas, apple juice) until 3 hours prior to surgery with a maximum of 20 ounces. - No food from midnight until time of surgery Take the following medications with a SIP of water the morning of surgery: ANTIBIOTIC, CLONAZEPAM, CLONIDINE IF NEEDED, FLUVOXAMINE, LAMOTRIGINE, PAXIL DO NOT STOP ANY OF YOUR OTHER PRESCRIPTION MEDICATIONS PRIOR TO SURGERY ?EXCEPT THE FOLLOWING Medications to discontinue per physician: N/A Date to take last dose: N/A Please no make-up, nail kazakh, hairspray, perfume, deodorant, or body powder the day of surgery. No jewelry (including any body piercings) or valuables the day of surgery, leave them at home. Please take a shower or bath the night before, or the morning of, surgery with an antibacterial soap. Wear comfortable, loose fitting clothing. - Jewelry must be removed prior to entering the operating room. Rings and piercings that are not removed may be cut off. - The hospital will not accept responsibility for valuables. - Please leave all valuables, including medications, at home the day of surgery. If you are going home after surgery, a licensed milk driver must drive you home. - NO public transportation without another adult if you receive anesthesia. - We recommend that an adult stay with you for 24 hours following discharge. - We also recommend that you do not drive, make important decision, drink alcoholic beverages, or take any drugs that were not prescribed by your health care provider for at least 24 hours after your discharge time. Follow any additional instructions given to you from your surgeon. If you or anyone in your household have experienced Covid symptoms in the past week, please notify your surgeon or the nurse liaison at the phone number below for possible testing. Telephone instructions given to PT - TIMMY CODY and asked if any additional questions and then verbalized understanding. Patient advised to call surgeon office or pre surgery nurse liaison [phone] if any additional questions.
--- NOTE | ~2023-05-22 | XR_ITS ---
EXAMINATION: XR abdomen/kub 1V INDICATION: Prelithotripsy TECHNIQUE: Supine views of the abdomen were obtained on 2 radiographs. COMPARISON: 05/11/2023 FINDINGS: A right internal ureteral stent is in expected position. There is a 10 mm stone projecting in the right pelvis which appears to be in the bladder. No definite additional urolithiasis is identi fied. Orthopedic hardware is present in the spine and proximal femurs. The bowel gas pattern is fazal l. Shunt catheter tubing courses over the right abdomen. IMPRESSION: 1. Right internal ureteral stent in expected position with presumed bladder stone on the right pelvis . Reviewed, dictated and finalized at location B. IMPRESSION: 1. Right internal ureteral stent in expected position with presumed bladder sto ne on the right pelvis.
--- NOTE | 2023-05-22 06:59 | WPDHPUPDATE1 ---
History and Physical Update Update Date/Time: 05/22/23 06:59 History and Physical has been reviewed, including an updated exam of the patient. There are NO changes in the patient's condition. Risks, benefits, and alternatives have been discussed and questions answered. Patient agrees to proceed with procedure.
[2023-05-22 10:39] VITALS: BP 138/77; PULSE 108; RESP 16; TEMP 36.7; O2SAT 92
--- NOTE | 2023-05-22 10:49 | ECG_ITS ---
Measurements Intervals [place] Rate: 84 P: 30 WA: 128 QRS: 17 QRSD: 110 T: 25 QT: 383 QTc: 454 Interpretive Statements SINUS RHYTHM POSSIBLE LEFT ATRIAL ENLARGEMENT [-0.1mV P WAVE IN V1/V2] INCOMPLETE RIGHT BUNDLE BRANCH BLOCK [90+ ms QRS DURATION, TERMINAL R IN V1/V2, 40+ ms S IN I/aVL/V4/V5/V6] ABNORMAL ECG COMPARED TO ECG 08/06/2019 13:27:13 SINUS RHYTHM NOW PRESENT Electronically Signed On 05-22-2023 14:05:33 CDT by Darrin Pineda M.D.
--- NOTE | 2023-05-22 11:47 | WPDANESEPPF ---
Anes - Initial Pre Proc Eval Procedure: Operation Date: 05/22/23 12:30 Proposed Procedures p Right Extracorporeal Shock Wave Lithotripsy - Marc Hernandez MD s Cystoscopy with Right Stent Removal - Marc Hernandez MD Date/Time: 05/22/23 11:47 Surgeon: Marc Hernandez MD Pre Op Diagnosis: right ureteral stone Patient Data Age: 43 Gender: M Height: 1.52 m Weight: 59 kg Allergies Allergy/AdvReac Type Severity Reaction Status Date / Time clarithromycin AdvReac Severe PARANOIA/PANIC Verified 05/20/23 10:25 AND ANXIETY ATTACKS Home Medications Medication Instructions Recorded Confirmed Type losartan 25 mg tablet 25 mg PO DAILY 06/21/20 05/20/23 History clonazepam 1 mg tablet 1 mg PO DAILY 05/07/21 05/20/23 History paroxetine HCl 12.5 mg 12.5 mg PO DAILY 05/07/21 05/20/23 History tablet,extended release 24 hr (Paxil CR) paroxetine HCl 37.5 mg 37.5 mg PO DAILY 05/07/21 05/20/23 History tablet,extended release 24 hr (Paxil CR) clonidine HCl 0.1 mg tablet 0.1 mg PO DAILY PRN Anxiety 05/08/23 05/20/23 History fluvoxamine 100 mg tablet 50 mg PO BID 05/08/23 05/20/23 History lamotrigine 100 mg tablet 100 mg PO DAILY 05/08/23 05/20/23 History amoxicillin 875 mg-potassium 1 tablet PO Q12H 10 days #20 tabs 05/13/23 05/20/23 Rx clavulanate 125 mg tablet Patient hx anesthesia problems: none Family hx anesthesia problems: none Results Review: All pre-operative results and documents have been reviewed as part of the pre-operative evaluation. [facility] Past Medical History Medical History Anxiety Anxiety Aspiration pneumonia Cerebral palsy Cerebral palsy Chronic back pain Depression Depression GERD (gastroesophageal reflux disease) HTN (hypertension) Hydrocephalus Hyperlipidemia Hypertension Kidney stones Lordosis Scoliosis Seizures UTI (urinary tract infection) Surgical History Surgical History History of brain shunt History of hip surgery Bilateral osteotomies History of spinal fusion With jeff placement Family History Family History Other Hypertension Social History Social History Smoking status: Never smoker Alcohol intake: never Substance use: never Substance use type: does not use Lack of Transportation: No Lack of Food: Never True Current Housing: I Have Housing Concerned About Future Housing: No Difficulty Paying Gas/Electric Bills: No Difficulty Paying for Meds: No Currently Unemployed: No Education: High School Diploma/GED Difficulty w/ Childcare or Family Care: No Living arrangements: with family Occupation/Education: other Spiritual care concerns: No Anes - Eval Final PreProcedure Day of Procedure 05/22/23 11:47 Patient weight: normal Heart: regular rate and rhythm Lungs: clear to auscultation Airway: Mallampati scale class II Neurological: alert and oriented Last oral intake: >/= 8 hours ASA classification: III Emergent: no Anesthetic plan: proceed Anesthesia type and monitoring: general LMA and standard monitoring Results Review: All pre-operative results and documents have been reviewed as part of the pre-operative evaluation. Informed Consent: The patient's anesthetic plan and its attendant risks and benefits were discussed with the patient/family/POA. Questions were solicited and answers provided to the satisfaction of the patient/family/POA.
--- NOTE | 2023-05-22 11:53 | SUR.PREOP ---
1152: unable to obtain pt/inr results on patient. Dr. Hernandez notified by this RN. Per md: okay to proceed with procedure.
[2023-05-22] MEDS: ceFAZolin 2 GM/D5W 50 ML 2 GM/50 ML BAG IVPB (12:08)
--- NOTE | 2023-05-22 12:30 | W.PM.PROC2 ---
Procedure Note - Detailed Date of Procedure 05/22/23 Pre-op Diagnosis Right renal stone Post-op Diagnosis Same Procedure Performed cystoscopy, right ureteral stent removal, right ESWL Surgeon Marc Hernandez MD Anesthesia General Description of Procedure The patient was brought to the operative suite where he was placed in the supine position on the Dornier lithotripter table. Flexible cystoscopy was undertaken with a 16F flexible cystoscopy. There were no urethral strictures. The prostatic urethra estimated length was 1.5cm. There was mild obstruction of the prostatic urethra with no median lobe enlargement. The bladder mucosa was normal and there was a single, orthotopic ureteral orifice bilaterally. Tip of the indwelling stent was grasped from the stent was removed with ease. A total of 2500 shocks were delivered at a power setting of 4. There appeared to be good fragmentation of the stone. The patient tolerated the procedure well and was taken to the recovery room in good condition. Drains No Packing No Pathology None sent Complications No immediate complications Condition Stable Disposition PACU
[2023-05-22 12:57] VITALS: BP 108/81; PULSE 73; RESP 17; TEMP 36.3; O2SAT 98
[2023-05-22] MEDS: LACTATED RINGERS 1,000 ML 30 ML IV CONT (12:57)
[2023-05-22 13:10] VITALS: BP 128/87; PULSE 86; RESP 18; O2SAT 99
[2023-05-22 13:25] VITALS: BP 125/76; PULSE 89; RESP 18; O2SAT 100
[2023-05-22 13:31] VITALS: BP 117/70; PULSE 68; RESP 18
[2023-05-22 14:00] VITALS: BP 119/74; PULSE 68; RESP 18
--- NOTE | 2023-05-22 14:24 | SUR.PHASEII ---
LOPEZ CATHETER INTACT; PLACED IN OR; DRAINING PINK CLEAR URINE. PARENTS WILL D/C IT AT HOME WHEN URINE IS CLEAR; SYRINGE GIVEN TO PARENTS. SECURED TO THIGH.
== END 2023-05-22 14:10 | disposition home or self-care (01) ==
PROVIDERS: PCP Internal Medicine; Visit Provider Urology
PROC: (CPT 50590; principal; 2023-05-22 12:30)
PROC: (CPT 52310; 2023-05-22 12:30)
DX: N20.0 Calculus of kidney (principal); I10 Essential (primary) hypertension; G40.909 Epilepsy, unspecified, not intractable, without status epilepticus; G80.9 Cerebral palsy, unspecified; E78.5 Hyperlipidemia, unspecified; G91.9 Hydrocephalus, unspecified; Z98.2 Presence of cerebrospinal fluid drainage device; F41.9 Anxiety disorder, unspecified; F32.A Depression, unspecified; K21.9 Gastro-esophageal reflux disease without esophagitis; Z98.1 Arthrodesis status
CPT/HCPCS: 50590; 52310; 74018; 93005; J0690; J2704; J7120

== ENCOUNTER 2023-06-05 14:21 | Outpatient (CLI) | payer MEDICARE, MEDICAID, SELFPAY ==
--- NOTE | ~2023-06-05 | XR_ITS ---
XR abdomen/kub 1V 06/05/2023 14:37 Indication: Renal stone Procedure: KUB Comparison: 05/22/2023 and 05/11/2023 Findings: Bowel gas pattern nonobstructive. There is fecal impaction of the colon. There are calcific ations in the pelvis which may represent bladder stones. There is a right renal stone. There is a rig ht-sided catheter overlying the abdomen, possibly ventriculoperitoneal shunt. There are spinal rods o verlying the lower thoracic and lumbar spine extending to the pelvis. Impression: 1: Right renal stone. Possible bladder stones. 2: Fecal impaction of the colon. Reviewed, dictated and finalized at location B. Impression: 1: Right renal stone. Possible bladder stones. 2: Fecal impaction of the colon.
== END 2023-06-05 14:22 | disposition home or self-care (01) ==
LOC: ANHIMG 14:25
PROVIDERS: PCP Internal Medicine; Visit Provider Urology
DX: N20.0 Calculus of kidney (principal); K56.41 Fecal impaction
CPT/HCPCS: 74018

== ENCOUNTER 2023-10-07 14:01 | Outpatient (CLI) | payer MEDICARE, MEDICAID, SELFPAY ==
--- NOTE | ~2023-10-07 | XR_ITS ---
EXAMINATION: XR abdomen/kub 1V INDICATION: History of kidney stones TECHNIQUE: Supine views of the abdomen were obtained on 2 radiographs. COMPARISON: 06/05/2023 FINDINGS: A large volume of colonic stool is present. Bowel contents project over the kidneys limitin g sensitivity for renal stones. A 7 mm pelvic calcification may reflect bladder stone. There are pacheco ges of thoracolumbar through bilateral sacroiliac fusion. There are partially imaged surgical changes of the proximal femurs. Ventriculoperitoneal shunt catheter tubing is noted. IMPRESSION: 1. Possible 7 mm bladder stone. Reviewed, dictated and finalized at location F. [employer]
== END 2023-10-07 14:02 | disposition home or self-care (01) ==
LOC: ANHIMG 14:03
PROVIDERS: PCP Internal Medicine; Visit Provider Urology
DX: Z87.442 Personal history of urinary calculi (principal)
CPT/HCPCS: 74018

== ENCOUNTER 2023-10-19 14:20 | Outpatient (CLI) | payer MEDICARE, MEDICAID, SELFPAY ==
--- NOTE | ~2023-10-19 | CT_ITS ---
EXAMINATION: CT abdomen pelvis wo con DATE: 10/19/2023 14:42 INDICATION: Calculus of bladder TECHNIQUE: Computed tomography (CT) of the abdomen and pelvis was performed without intravenous contr ast. Automated exposure control and iterative reconstruction technique were employed. The dose-length product was 225.74 mGy-cm. COMPARISON: 05/08/2023 FINDINGS: Mild dependent atelectasis in bilateral lower lobes. Heart size is normal. Distal tip of a catheter e xtends caudally along the visualized superior vena cava with distal tip at the superior cavoatrial ju nction. There is an additional catheter likely a retained portion of a prior intraperitoneal shunt wh ich begins in the subcutaneous tissues along the medial right temporal region and extends caudally in to the right lower quadrant of the abdomen. Bilateral gynecomastia. Liver, gallbladder, spleen, pancr eas, pancreas and left kidney are normal. 2.5 cm exophytic lesion at the lower pole of the right kidn ey with greater than simple fluid attenuation. Large amount of stool scattered throughout the colon. Small bowel and appendix are normal. There are 3 calcified stones in the dependent bladder the larges t measuring 9 mm. There is diffuse bladder wall thickening. The uterus is not identified and has like ly been surgically resected. No free intraperitoneal gas or fluid. No pathologically enlarged abdomin al or pelvic lymphadenopathy. Extensive instrumented posterior spinal fusion extending from the cepha lad margin of the [id number] at T6 through the sacrum with bilateral vertical rods, laminar wires, . Pedicle screws and bilateral iliac screws. Bilateral blade plate and screw fixations at the bilater al proximal femurs. IMPRESSION: 1. Chronic diffuse bladder wall thickening with 3 calcified stones in the bladder, the largest measur ing 9 mm in maximal diameter. Diffuse wall thickening could be due to chronic outlet obstruction, radha rogenic bladder or cystitis either acute or chronic and 90. 2. 2.5 similar exophytic lesion at the lower pole of the right kidney with greater than simple fluid attenuation. This most likely proteinaceous/hemorrhagic cyst although solid neoplasm could not be abs olutely excluded. Assessment for enhancement by MRI and CT would likely be limited by streak artifact and therefore would consider further evaluation with ultrasound to confirm suspected cystic nature o f the lesion. Reviewed, dictated and finalized at location B. IMPRESSION: 1. Chronic diffuse bladder wall thickening with 3 calcified stones in the bladd er, the largest measuring 9 mm in maximal diameter. Diffuse wall thickening cou ld be due to chronic outlet obstruction, neurogenic bladder or cystitis either acute or chronic and 90. 2. 2.5 similar exophytic lesion at the lower pole of the right kidney with grea ter than simple fluid attenuation. This most likely proteinaceous/hemorrhagic c yst although solid neoplasm could not be absolutely excluded. Assessment for en hancement by MRI and CT would likely be limited by streak artifact and therefor e would consider further evaluation with ultrasound to confirm suspected cystic nature of the lesion.
== END 2023-10-19 14:21 | disposition home or self-care (01) ==
LOC: ANHIMG 14:26
PROVIDERS: PCP Internal Medicine; Visit Provider Urology
DX: N21.0 Calculus in bladder (principal); N32.89 Other specified disorders of bladder; N28.89 Other specified disorders of kidney and ureter
CPT/HCPCS: 74176

== ENCOUNTER 2023-10-29 02:56 | Day surgery (SDC) | payer MEDICARE, MEDICAID, SELFPAY ==
[2023-10-23 12:09] VITALS: BMI 25.2
--- NOTE | 2023-10-23 12:14 | PC.NURSE ---
Report to the Outpatient Waiting Room, entrance under the green pavilion located off [facility], at time 0830 on date 10/29/23. Planned Procedure Time: 1030. Time changes happen often and if your time is changed the preop area will call you the afternoon before. - You and your visitor will be asked to self-screen and do not enter if you have any COVID symptoms. - A mask is optional within the hospital at this time. Patients may have clear liquids (water, carbonated beverages, clear teas, apple juice) until 3 hours prior to surgery with a maximum of 20 ounces. - No food from midnight until time of surgery Take the following medications with a SIP of water the morning of surgery: CEPHALEXIN, CLONAZEPAM, CLONIDINE IF NEEDED, FLUVOXAMINE, LAMOTRIGINE, PAROXETINE DO NOT STOP ANY OF YOUR OTHER PRESCRIPTION MEDICATIONS PRIOR TO SURGERY ?EXCEPT THE FOLLOWING Medications to discontinue per physician: N/A Date to take last dose: N/A Please no make-up, nail emirati, hairspray, perfume, deodorant, or body powder the day of surgery. No jewelry (including any body piercings) or valuables the day of surgery, leave them at home. Please take a shower or bath the night before, or the morning of, surgery with an antibacterial soap. Wear comfortable, loose fitting clothing. - Jewelry must be removed prior to entering the operating room. Rings and piercings that are not removed may be cut off. - The hospital will not accept responsibility for valuables. - Please leave all valuables, including medications, at home the day of surgery. If you are going home after surgery, a licensed [place] driver must drive you home. - NO public transportation without another adult if you receive anesthesia. - We recommend that an adult stay with you for 24 hours following discharge. - We also recommend that you do not drive, make important decision, drink alcoholic beverages, or take any drugs that were not prescribed by your health care provider for at least 24 hours after your discharge time. Follow any additional instructions given to you from your surgeon. If you or anyone in your household have experienced Covid symptoms in the past week, please notify your surgeon or the nurse liaison at the phone number below for possible testing. Telephone instructions given to DEION Charles GRIFFIN and asked if any additional questions and then verbalized understanding. Patient advised to call surgeon office or pre surgery nurse liaison [phone] if any additional questions.
[2023-10-29] VITALS (7 sets, daily range): BP systolic 129–151; BP diastolic 63–95; PULSE 70–102; RESP 15–19; TEMP 36.2–36.4; O2SAT 98–100; BMI 19.9
--- NOTE | 2023-10-29 06:21 | WPDHPUPDATE1 ---
History and Physical Update Update Date/Time: 10/29/23 06:21 History and Physical has been reviewed, including an updated exam of the patient. There are NO changes in the patient's condition. Risks, benefits, and alternatives have been discussed and questions answered. Patient agrees to proceed with procedure.
--- NOTE | 2023-10-29 07:39 | WPDANESEPPF ---
Anes - Initial Pre Proc Eval Procedure: Operation Date: 10/29/23 08:30 Proposed Procedures p Cystoscopy, Holmium Laser Lithotripsy with Bladder Stone Extraction - Marc Hernandez MD Date/Time: 10/29/23 07:39 Surgeon: Marc Hernandez MD Pre Op Diagnosis: mult bladder stones Patient Data Age: 43 Gender: M Height: 1.52 m Weight: 58.5 kg Allergies Allergy/AdvReac Type Severity Reaction Status Date / Time clarithromycin AdvReac Severe PARANOIA/PANIC Verified 10/23/23 12:07 AND ANXIETY ATTACKS Home Medications Medication Instructions Recorded Confirmed Type losartan 25 mg tablet 25 mg PO DAILY 06/21/20 10/23/23 History clonazepam 1 mg tablet 1 mg PO TID 05/07/21 10/23/23 History paroxetine HCl 12.5 mg 12.5 mg PO DAILY 05/07/21 10/23/23 History tablet,extended release 24 hr (Paxil CR) paroxetine HCl 37.5 mg 37.5 mg PO DAILY 05/07/21 10/23/23 History tablet,extended release 24 hr (Paxil CR) clonidine HCl 0.1 mg tablet 0.1 mg PO DAILY PRN Anxiety 05/08/23 10/23/23 History fluvoxamine 100 mg tablet 50 mg PO BID 05/08/23 10/23/23 History lamotrigine 100 mg tablet 100 mg PO DAILY 05/08/23 10/23/23 History cephalexin 500 mg capsule 500 mg PO DAILY 10/23/23 10/23/23 History Patient hx anesthesia problems: none Family hx anesthesia problems: none Results Review: All pre-operative results and documents have been reviewed as part of the pre-operative evaluation. [facility] Past Medical History Medical History Anxiety Anxiety Aspiration pneumonia Cerebral palsy Cerebral palsy Chronic back pain Depression Depression GERD (gastroesophageal reflux disease) HTN (hypertension) Hydrocephalus Hyperlipidemia Hypertension Kidney stones Lordosis Scoliosis Seizures UTI (urinary tract infection) Surgical History Surgical History (Updated 10/29/23 @ 07:40 by Ron Hdz MD) H/O lithotripsy History of brain shunt History of hip surgery Bilateral osteotomies History of spinal fusion With jeff placement Hx of cystoscopy Family History Family History Other Hypertension Social History Social History Smoking status: Never smoker Alcohol intake: never Substance use: never Substance use type: does not use Lack of Transportation: No Lack of Food: Never True Current Housing: I Have Housing Concerned About Future Housing: No Difficulty Paying Gas/Electric Bills: No Difficulty Paying for Meds: No Currently Unemployed: No Education: High School Diploma/GED Difficulty w/ Childcare or Family Care: No Living arrangements: with family Occupation/Education: other Spiritual care concerns: No Anes - Eval Final PreProcedure Day of Procedure 10/29/23 07:39 Patient weight: normal Heart: regular rate and rhythm Lungs: decreased breath sounds Airway: Mallampati scale class II Last oral intake: >/= 8 hours ASA classification: III Emergent: no Anesthetic plan: proceed Anesthesia type and monitoring: general LMA and standard monitoring Results Review: All pre-operative results and documents have been reviewed as part of the pre-operative evaluation. Informed Consent: The patient's anesthetic plan and its attendant risks and benefits were discussed with the patient/family/POA. Questions were solicited and answers provided to the satisfaction of the patient/family/POA.
[2023-10-29] MEDS: LACTATED RINGERS 1,000 ML 30 ML IV CONT (07:52)
--- NOTE | 2023-10-29 08:26 | PM.HPGS ---
History of Present Illness History of Present Illness Consent: Risks, benefits, and alternatives have been discussed and questions answered. Patient agrees to proceed with procedure. Chief complaint: mult bladder stones Narrative: Garcia Sandy Jr. is a 43 year old male Who is well known to me with a history of your current upper and lower urinary tract stones. Several years ago bladder stones that required endoscopic extraction. He recently underwent imaging for a possible ureteral stone and findings suggested small to moderate-sized bladder stones that were confirmed by CT scan. After discussion of options he elects to proceed with cystoscopy with bladder stone extraction with possible laser lithotripsy. He is aware the risk including, but not limited to, adverse cardiopulmonary events, recurrence of the stones and need for additional procedures Review of Systems Review of Systems: All systems reviewed & are unremarkable except as noted in HPI and below PMFSH Past Medical History Medical History (Updated 10/29/23 @ 08:28 by Marc Hernandez MD) Anxiety Anxiety Aspiration pneumonia Cerebral palsy Cerebral palsy Chronic back pain Depression Depression GERD (gastroesophageal reflux disease) HTN (hypertension) Hydrocephalus Hyperlipidemia Hypertension Kidney stones Lordosis Scoliosis Seizures UTI (urinary tract infection) Surgical History Surgical History (Updated 10/29/23 @ 07:40 by Ron Hdz MD) H/O lithotripsy History of brain shunt History of hip surgery Bilateral osteotomies History of spinal fusion With jeff placement Hx of cystoscopy Family History Family History Other Hypertension Social History Social History Smoking status: Never smoker Alcohol intake: never Substance use: never Substance use type: does not use Lack of Transportation: No Lack of Food: Never True Current Housing: I Have Housing Concerned About Future Housing: No Difficulty Paying Gas/Electric Bills: No Difficulty Paying for Meds: No Currently Unemployed: No Education: High School Diploma/GED Difficulty w/ Childcare or Family Care: No Living arrangements: with family Occupation/Education: other Spiritual care concerns: No Meds Home Medications and Allergies Home Medications Medication Instructions Recorded Confirmed Type losartan 25 mg tablet 25 mg PO DAILY 06/21/20 10/29/23 History clonazepam 1 mg tablet 1 mg PO TID 05/07/21 10/29/23 History paroxetine HCl 12.5 mg 12.5 mg PO DAILY 05/07/21 10/29/23 History tablet,extended release 24 hr (Paxil CR) paroxetine HCl 37.5 mg 37.5 mg PO DAILY 05/07/21 10/29/23 History tablet,extended release 24 hr (Paxil CR) clonidine HCl 0.1 mg tablet 0.1 mg PO DAILY PRN Anxiety 05/08/23 10/29/23 History fluvoxamine 100 mg tablet 50 mg PO BID 05/08/23 10/29/23 History lamotrigine 100 mg tablet 100 mg PO DAILY 05/08/23 10/29/23 History cephalexin 500 mg capsule 500 mg PO DAILY 10/23/23 10/29/23 History Allergies Allergy/AdvReac Type Severity Reaction Status Date / Time clarithromycin AdvReac Severe PARANOIA/PANIC Verified 10/29/23 07:42 AND ANXIETY ATTACKS Vital Signs Vital Signs - 24 hr 10/29/23 07:47 Temperature 97.5 F L Pulse Rate 102 H Respiratory Rate 18 Blood Pressure 151/73 H Pulse Oximetry 100 Exam Const: General: no acute distress Resp: Effort & Inspection: normal respiratory effort GI: Inspection: non-distended GI Palp: No abdominal tenderness and No Guarding due to palpation present (GI) Auscultation: normal bowel sounds Assessment and Plan Assessment and plan (1) Cerebral palsy: Code(s): G80.9 - Cerebral palsy, unspecified Status: Acute (2) Bladder stones: Code(s): N21.0 - Calculus in bladder Status: Acute Assessment and Plan:
--- NOTE | 2023-10-29 09:05 | W.PM.PROC2 ---
Procedure Note - Detailed Date of Procedure 10/29/23 Pre-op Diagnosis Multiple bladder stones Post-op Diagnosis Same Procedure Performed Cystoscopy, laser lithotripsy bladder stones with extraction of bladder stones Surgeon Marc Hernandez MD Anesthesia General Description of Procedure patient brought to the operative suite was prepped draped in routine sterile fashion while in a gentle dorsal lithotomy position. cystoscopy undertaken with a 19 F rigid cystoscope. Using a 500 micron Vin laser fiber I fractured the 2 moderate-sized stones and a couple smaller ones into fragments less than 2-3 mm. All fragments were evacuated with an Ellik evacuated. Placed a 16 F coude catheter drainage. Drains Yes Packing No Pathology Yes Complications No immediate complications Condition Stable Disposition PACU
== END 2023-10-29 10:20 | disposition home or self-care (01) ==
PROVIDERS: PCP Internal Medicine; Visit Provider Urology
PROC: 0TCB8ZZ Extirpation of Matter from Bladder, Via Natural or Artificial Opening Endoscopic (ICD-10-PCS; CPT 52352; principal; 2023-10-29 08:30)
DX: N21.0 Calculus in bladder (principal); G80.9 Cerebral palsy, unspecified; I10 Essential (primary) hypertension; E78.5 Hyperlipidemia, unspecified; G40.909 Epilepsy, unspecified, not intractable, without status epilepticus; F41.9 Anxiety disorder, unspecified; F32.A Depression, unspecified; G91.9 Hydrocephalus, unspecified; Z98.2 Presence of cerebrospinal fluid drainage device
CPT/HCPCS: 52317; 82365; 88300; J3010; J7120

== ENCOUNTER 2024-06-18 13:48 | Outpatient (CLI) | payer MEDICARE, MEDICAID, SELFPAY ==
--- NOTE | ~2024-06-18 | XR_ITS ---
Supine and upright views of the abdomen Clinical history: Kidney stone COMPARISON: 10/07/2023 Findings: Bowel gas pattern is nonspecific. No evidence for obstruction or free air. No abnormal mass lesion or calcification is seen. Extensive spinal fixation hardware is present extending throughout the visualized thoracic, lumbar spine, into the sacrum and iliac bones. Orthopedic hardware is presen t at the proximal femora bilaterally. 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 Impression: No definite kidney stone. Extensive orthopedic hardware is unchanged. Reviewed, dictated and finalized at location [facility] [employer] Impression: No definite kidney stone. Extensive orthopedic hardware is unchanged.
== END 2024-06-18 13:49 | disposition home or self-care (01) ==
PROVIDERS: PCP Internal Medicine; Visit Provider Urology
DX: R35.0 Frequency of micturition (principal); Z87.442 Personal history of urinary calculi; Z96.698 Presence of other orthopedic joint implants
CPT/HCPCS: 74018